=== PATIENT | male | born 1955 | race Caucasian/White ===

== ENCOUNTER 2017-08-26 01:19 | Inpatient (IN) ==
[2017-08-26] MEDS ORDERED: dilTIAZem Inj 125 MG in Sodium Chlor 0.9% Inj 100 ML IV.CONT PRN (01:35)
[2017-08-26] MEDS ORDERED: Nitroglycerin Drip Premix 50 MG/250 ML BOTTLE IV.CONT PRN (01:36)
--- NOTE | 2017-08-26 01:48 | ED ---
HPI General Chief Complaint: Respiratory Symptoms Stated Complaint: Resp?Evac Time Seen by Provider: 08/26/17 01:35 Source: patient and EMS Mode of arrival: EMS Limitations: physical limitation History of Present Illness HPI Narrative: pt forde s SOB worsening over last few days and orthopnea and resp distres placed on BiPaP{ prior to arrival . pt continued on BIPAP and lasix and Nitro given to decrease after load and diuresis of Pulmonary enema . Pt is slowly improving in ER , ROS and HPI limited due to SOB on BiPaP Onset (ago): hour(s) Duration: constant Severity: similar to previous episodes Relieving factors: nothing Related Data Home Medications Medication Instructions Recorded Confirmed aspirin 325 mg PO DAILY 08/26/17 08/26/17 furosemide [Lasix] 40 mg PO BID 08/26/17 08/26/17 Allergies Allergy/AdvReac Type Severity Reaction Status Date / Time No Known Allergies Allergy Verified 08/26/17 01:34 Review of Systems Except as stated in HPI: all other systems reviewed are negative Exam Narrative Exam Narrative: GENERAL: appears very SOB on CPAP from EMS EVAC SKIN: Warm and dry. HEAD: Atraumatic. Normocephalic. EYES: Pupils equal and round. No scleral icterus. No injection or drainage. ENT: No nasal bleeding or discharge. Mucous membranes pink and moist. NECK: Trachea midline. No JVD. CARDIOVASCULAR: Regular rate and rhythm. RESPIRATORY: Rales bibaasilar 1/3 lower lung fileds bilaterally. GASTROINTESTINAL: Abdomen soft, non-tender, nondistended. Hepatic and splenic margins not palpable. MUSCULOSKELETAL: Extremities without clubbing, cyanosis, or edema. No obvious deformities. NEUROLOGICAL: Awake and alert. No obvious cranial nerve deficits. Motor grossly within normal limits. Five out of 5 muscle strength in the arms and legs. Normal speech. PSYCHIATRIC: Appropriate mood and affect; insight and judgment normal. Course Initial Documented Vital Signs Pulse Rate 161 H 08/26/17 01:20 Respiratory Rate 38 H 08/26/17 01:20 Blood Pressure 152/106 H 08/26/17 01:20 Pulse Oximetry 78 L 08/26/17 01:20 Last Documented Vital Signs Temperature 98.2 F 08/29/17 11:00 Pulse Rate 74 08/29/17 11:00 Respiratory Rate 18 08/29/17 11:00 Blood Pressure 105/65 08/29/17 11:00 Pulse Oximetry 96 07/19/18 11:00 Critical Care Time Critical Care Time: Yes Total Critical Care Time: 30 Attestation: BIPAP NITRO DRIP LASIX CLOSE AIRWAY EVAL Medical Decision Making MDM Narrative Medical decision making narrative: CPAP lasix Nitro drip and admit to ICU pt greatly improved after 20 minutes on NItro drip and BIPAP Differential Diagnosis Differential Diagnosis: CHF , COPD , AFIB RVR with poor venticular filling then Pulmonary edema , vs PNA Bronchitis vs PTX other Lab Data Result diagrams: 08/29/17 06:56 08/29/17 06:02 Lab Results 08/26/17 08/26/17 08/26/17 Range/Units 01:51 01:51 01:57 WBC 12.9 H (4.0-11.0) th/mm3 RBC 4.45 L (4.50-5.90) mil/mm3 Hgb 14.9 (13.0-17.0) gm/dL Hct 45.0 (39.0-51.0) % MCV 101.3 H (80.0-100.0) fL MCH 33.5 (27.0-34.0) pg MCHC 33.0 (32.0-36.0) % RDW 14.5 (11.6-17.2) % Plt Count 266 (150-450) th/mm3 MPV 8.3 (7.0-11.0) fL Neut % (Auto) 88.0 H (16.0-70.0) % Lymph % (Auto) 7.8 L (9.0-44.0) % [place] % (Auto) 3.3 (0.0-8.0) % Eos % (Auto) 0.1 (0.0-4.0) % Baso % (Auto) 0.8 (0.0-2.0) % Neut # (Auto) 11.4 H (1.8-7.7) th/mm3 Lymph # (Auto) 1.0 (1.0-4.8) th/mm3 [place] # (Auto) 0.4 (0.0-0.9) th/mm3 Eos # (Auto) 0.0 (0.0-0.4) th/mm3 Baso # (Auto) 0.1 (0.0-0.2) th/mm3 WBC Differential . Differential Comment Auto diff final PT (9.8-11.6) sec INR Ratio APTT (24.3-30.1) sec Puncture Site Patient Temperature O2 Saturation (90-100) % ABG pH (7.380-7.420) ABG pCO2 (38-42) mmHg ABG pO2 (61-120) mmHG ABG HCO3 (22-26) mmol/L ABG O2 Content (12.0-20.0) Vol % ABG Base Excess (-2-2) mmol/L ABG Methemoglobin (0-2) % Arian Test Hemoglobin (12.0-16.0) G/DL Carboxyhemoglobin (0-4) % O2 Delivery Device Vent Setting Inspired O2 % Critical Value Sodium 129 L (136-145) meq/L Potassium 3.7 (3.5-5.1) meq/L Chloride 97 L (98-107) meq/L Carbon Dioxide 17.2 L (21.0-32.0) meq/L Anion Gap 15 (5-15) meq/L BUN 10 (7-18) mg/dL Creatinine 1.35 H (0.60-1.30) mg/dL Estimated GFR 53 L (>89) mL/min Random Glucose 292 H (74-106) mg/dL Hemoglobin A1c (4.3-6.0) % Lactic Acid (0.4-2.0) mmol/L Calcium 8.3 L (8.5-10.1) mg/dL Phosphorus (2.5-4.9) mg/dL Magnesium (1.5-2.5) mg/dL Total Bilirubin 1.8 H (0.2-1.0) mg/dL AST 29 (15-37) U/L ALT 28 (12-78) U/L Alkaline Phosphatase 138 H (45-117) U/L Troponin I 0.04 (0.02-0.05) ng/mL B-Natriuretic Peptide 766 H (0-100) pg/mL Total Protein 7.7 (6.4-8.2) g/dL Albumin 3.6 (3.4-5.0) g/dL Urine Color (Yellw/Straw) Urine Clarity (Clear) Urine pH (5.0-8.5) Ur Specific [place] (1.002-1.035) Urine Protein (Neg-Trace) mg/dL Urine Glucose (UA) (Negative) mg/dL Urine Ketones (Negative) mg/dL Urine Occult Blood (Negative) Urine Nitrate (Negative) Urine Bilirubin (Negative) Urine Urobilinogen (Less than 2) mg/dL Ur Leukocyte Esterase (Negative) Urine RBC (0-3) /hpf Urine WBC (0-5) /hpf Micro UA Comment Urine Culture Comments Nasal Screen MRSA (PCR) (Negative) 08/26/17 08/26/17 08/26/17 Range/Units 03:50 04:05 05:05 WBC 11.4 H (4.0-11.0) th/mm3 RBC 4.30 L (4.50-5.90) mil/mm3 Hgb 14.4 (13.0-17.0) gm/dL Hct 43.5 (39.0-51.0) % MCV 101.2 H (80.0-100.0) fL MCH 33.5 (27.0-34.0) pg MCHC 33.2 (32.0-36.0) % RDW 14.5 (11.6-17.2) % Plt Count 248 (150-450) th/mm3 MPV 8.4 (7.0-11.0) fL Neut % (Auto) (16.0-70.0) % Lymph % (Auto) (9.0-44.0) % [place] % (Auto) (0.0-8.0) % Eos % (Auto) (0.0-4.0) % Baso % (Auto) (0.0-2.0) % Neut # (Auto) (1.8-7.7) th/mm3 Lymph # (Auto) (1.0-4.8) th/mm3 [place] # (Auto) (0.0-0.9) th/mm3 Eos # (Auto) (0.0-0.4) th/mm3 Baso # (Auto) (0.0-0.2) th/mm3 WBC Differential Differential Comment PT 11.5 (9.8-11.6) sec INR 1.1 Ratio APTT (24.3-30.1) sec Puncture Site Patient Temperature O2 Saturation (90-100) % ABG pH (7.380-7.420) ABG pCO2 (38-42) mmHg ABG pO2 (61-120) mmHG ABG HCO3 (22-26) mmol/L ABG O2 Content (12.0-20.0) Vol % ABG Base Excess (-2-2) mmol/L ABG Methemoglobin (0-2) % Arian Test Hemoglobin (12.0-16.0) G/DL Carboxyhemoglobin (0-4) % O2 Delivery Device Vent Setting Inspired O2 % Critical Value Sodium (136-145) meq/L Potassium (3.5-5.1) meq/L Chloride (98-107) meq/L Carbon Dioxide (21.0-32.0) meq/L Anion Gap (5-15) meq/L BUN (7-18) mg/dL Creatinine (0.60-1.30) mg/dL Estimated GFR (>89) mL/min Random Glucose (74-106) mg/dL Hemoglobin A1c (4.3-6.0) % Lactic Acid (0.4-2.0) mmol/L Calcium (8.5-10.1) mg/dL Phosphorus (2.5-4.9) mg/dL Magnesium (1.5-2.5) mg/dL Total Bilirubin (0.2-1.0) mg/dL AST (15-37) U/L ALT (12-78) U/L Alkaline Phosphatase (45-117) U/L Troponin I 0.15 H (0.02-0.05) ng/mL B-Natriuretic Peptide (0-100) pg/mL Total Protein (6.4-8.2) g/dL Albumin (3.4-5.0) g/dL Urine Color (Yellw/Straw) Urine Clarity (Clear) Urine pH (5.0-8.5) Ur Specific [place] (1.002-1.035) Urine Protein (Neg-Trace) mg/dL Urine Glucose (UA) (Negative) mg/dL Urine Ketones (Negative) mg/dL Urine Occult Blood (Negative) Urine Nitrate (Negative) Urine Bilirubin (Negative) Urine Urobilinogen (Less than 2) mg/dL Ur Leukocyte Esterase (Negative) Urine RBC (0-3) /hpf Urine WBC (0-5) /hpf Micro UA Comment Urine Culture Comments Nasal Screen MRSA (PCR) (Negative) 08/26/17 08/26/17 08/26/17 Range/Units 08:07 10:52 10:52 WBC (4.0-11.0) th/mm3 RBC (4.50-5.90) mil/mm3 Hgb (13.0-17.0) gm/dL Hct (39.0-51.0) % MCV (80.0-100.0) fL MCH (27.0-34.0) pg MCHC (32.0-36.0) % RDW (11.6-17.2) % Plt Count (150-450) th/mm3 MPV (7.0-11.0) fL Neut % (Auto) (16.0-70.0) % Lymph % (Auto) (9.0-44.0) % [place] % (Auto) (0.0-8.0) % Eos % (Auto) (0.0-4.0) % Baso % (Auto) (0.0-2.0) % Neut # (Auto) (1.8-7.7) th/mm3 Lymph # (Auto) (1.0-4.8) th/mm3 [place] # (Auto) (0.0-0.9) th/mm3 Eos # (Auto) (0.0-0.4) th/mm3 Baso # (Auto) (0.0-0.2) th/mm3 WBC Differential Differential Comment PT 11.7 H (9.8-11.6) sec INR 1.2 Ratio APTT 42.0 H 46.7 H (24.3-30.1) sec Puncture Site Patient Temperature O2 Saturation (90-100) % ABG pH (7.380-7.420) ABG pCO2 (38-42) mmHg ABG pO2 (61-120) mmHG ABG HCO3 (22-26) mmol/L ABG O2 Content (12.0-20.0) Vol % ABG Base Excess (-2-2) mmol/L ABG Methemoglobin (0-2) % Arian Test Hemoglobin (12.0-16.0) G/DL Carboxyhemoglobin (0-4) % O2 Delivery Device Vent Setting Inspired O2 % Critical Value Sodium (136-145) meq/L Potassium (3.5-5.1) meq/L Chloride (98-107) meq/L Carbon Dioxide (21.0-32.0) meq/L Anion Gap (5-15) meq/L BUN (7-18) mg/dL Creatinine (0.60-1.30) mg/dL Estimated GFR (>89) mL/min Random Glucose (74-106) mg/dL Hemoglobin A1c (4.3-6.0) % Lactic Acid (0.4-2.0) mmol/L Calcium (8.5-10.1) mg/dL Phosphorus (2.5-4.9) mg/dL Magnesium (1.5-2.5) mg/dL Total Bilirubin (0.2-1.0) mg/dL AST (15-37) U/L ALT (12-78) U/L Alkaline Phosphatase (45-117) U/L Troponin I 0.03 (0.02-0.05) ng/mL B-Natriuretic Peptide (0-100) pg/mL Total Protein (6.4-8.2) g/dL Albumin (3.4-5.0) g/dL Urine Color (Yellw/Straw) Urine Clarity (Clear) Urine pH (5.0-8.5) Ur Specific [place] (1.002-1.035) Urine Protein (Neg-Trace) mg/dL Urine Glucose (UA) (Negative) mg/dL Urine Ketones (Negative) mg/dL Urine Occult Blood (Negative) Urine Nitrate (Negative) Urine Bilirubin (Negative) Urine Urobilinogen (Less than 2) mg/dL Ur Leukocyte Esterase (Negative) Urine RBC (0-3) /hpf Urine WBC (0-5) /hpf Micro UA Comment Urine Culture Comments Nasal Screen MRSA (PCR) (Negative) 08/26/17 08/26/17 08/26/17 Range/Units 14:50 17:46 22:40 WBC (4.0-11.0) th/mm3 RBC (4.50-5.90) mil/mm3 Hgb (13.0-17.0) gm/dL Hct (39.0-51.0) % MCV (80.0-100.0) fL MCH (27.0-34.0) pg MCHC (32.0-36.0) % RDW (11.6-17.2) % Plt Count (150-450) th/mm3 MPV (7.0-11.0) fL Neut % (Auto) (16.0-70.0) % Lymph % (Auto) (9.0-44.0) % [place] % (Auto) (0.0-8.0) % Eos % (Auto) (0.0-4.0) % Baso % (Auto) (0.0-2.0) % Neut # (Auto) (1.8-7.7) th/mm3 Lymph # (Auto) (1.0-4.8) th/mm3 [place] # (Auto) (0.0-0.9) th/mm3 Eos # (Auto) (0.0-0.4) th/mm3 Baso # (Auto) (0.0-0.2) th/mm3 WBC Differential Differential Comment PT (9.8-11.6) sec INR Ratio APTT 58.5 H D (24.3-30.1) sec Puncture Site Left radial Patient Temperature 98.6 O2 Saturation 92 (90-100) % ABG pH 7.34 L (7.380-7.420) ABG pCO2 44 H (38-42) mmHg ABG pO2 81 (61-120) mmHG ABG HCO3 23 (22-26) mmol/L ABG O2 Content 18.3 (12.0-20.0) Vol % ABG Base Excess -2.0 (-2-2) mmol/L ABG Methemoglobin 1.3 (0-2) % Arian Test Present Hemoglobin 14.1 (12.0-16.0) G/DL Carboxyhemoglobin 1.1 (0-4) % O2 Delivery Device Bipap Vent Setting Ipap=12 epap=6 Inspired O2 60 % Critical Value No Sodium (136-145) meq/L Potassium (3.5-5.1) meq/L Chloride (98-107) meq/L Carbon Dioxide (21.0-32.0) meq/L Anion Gap (5-15) meq/L BUN (7-18) mg/dL Creatinine (0.60-1.30) mg/dL Estimated GFR (>89) mL/min Random Glucose (74-106) mg/dL Hemoglobin A1c (4.3-6.0) % Lactic Acid (0.4-2.0) mmol/L Calcium (8.5-10.1) mg/dL Phosphorus (2.5-4.9) mg/dL Magnesium (1.5-2.5) mg/dL Total Bilirubin (0.2-1.0) mg/dL AST (15-37) U/L ALT (12-78) U/L Alkaline Phosphatase (45-117) U/L Troponin I (0.02-0.05) ng/mL B-Natriuretic Peptide (0-100) pg/mL Total Protein (6.4-8.2) g/dL Albumin (3.4-5.0) g/dL Urine Color (Yellw/Straw) Urine Clarity (Clear) Urine pH (5.0-8.5) Ur Specific [place] (1.002-1.035) Urine Protein (Neg-Trace) mg/dL Urine Glucose (UA) (Negative) mg/dL Urine Ketones (Negative) mg/dL Urine Occult Blood (Negative) Urine Nitrate (Negative) Urine Bilirubin (Negative) Urine Urobilinogen (Less than 2) mg/dL Ur Leukocyte Esterase (Negative) Urine RBC (0-3) /hpf Urine WBC (0-5) /hpf Micro UA Comment Urine Culture Comments Nasal Screen MRSA (PCR) Not detected (Negative) 08/27/17 08/27/17 08/27/17 Range/Units 05:15 05:15 05:15 WBC 9.8 (4.0-11.0) th/mm3 RBC 4.01 L (4.50-5.90) mil/mm3 Hgb 13.6 (13.0-17.0) gm/dL Hct 40.2 (39.0-51.0) % MCV 100.3 H (80.0-100.0) fL MCH 34.1 H (27.0-34.0) pg MCHC 34.0 (32.0-36.0) % RDW 14.3 (11.6-17.2) % Plt Count 205 (150-450) th/mm3 MPV 8.5 (7.0-11.0) fL Neut % (Auto) 83.9 H (16.0-70.0) % Lymph % (Auto) 10.4 (9.0-44.0) % [place] % (Auto) 5.2 (0.0-8.0) % Eos % (Auto) 0.1 (0.0-4.0) % Baso % (Auto) 0.4 (0.0-2.0) % Neut # (Auto) 8.2 H (1.8-7.7) th/mm3 Lymph # (Auto) 1.0 (1.0-4.8) th/mm3 [place] # (Auto) 0.5 (0.0-0.9) th/mm3 Eos # (Auto) 0.0 (0.0-0.4) th/mm3 Baso # (Auto) 0.0 (0.0-0.2) th/mm3 WBC Differential . Differential Comment Auto diff final PT 11.6 (9.8-11.6) sec INR 1.1 Ratio APTT 62.1 H (24.3-30.1) sec Puncture Site Patient Temperature O2 Saturation (90-100) % ABG pH (7.380-7.420) ABG pCO2 (38-42) mmHg ABG pO2 (61-120) mmHG ABG HCO3 (22-26) mmol/L ABG O2 Content (12.0-20.0) Vol % ABG Base Excess (-2-2) mmol/L ABG Methemoglobin (0-2) % Arian Test Hemoglobin (12.0-16.0) G/DL Carboxyhemoglobin (0-4) % O2 Delivery Device Vent Setting Inspired O2 % Critical Value Sodium 130 L (136-145) meq/L Potassium 4.1 (3.5-5.1) meq/L Chloride 94 L (98-107) meq/L Carbon Dioxide 24.7 (21.0-32.0) meq/L Anion Gap 11 (5-15) meq/L BUN 17 (7-18) mg/dL Creatinine 1.57 H (0.60-1.30) mg/dL Estimated GFR 45 L (>89) mL/min Random Glucose 132 H D (74-106) mg/dL Hemoglobin A1c (4.3-6.0) % Lactic Acid (0.4-2.0) mmol/L Calcium 8.5 (8.5-10.1) mg/dL Phosphorus 3.7 (2.5-4.9) mg/dL Magnesium 1.8 (1.5-2.5) mg/dL Total Bilirubin 2.6 H (0.2-1.0) mg/dL AST 58 H (15-37) U/L ALT 46 (12-78) U/L Alkaline Phosphatase 109 (45-117) U/L Troponin I (0.02-0.05) ng/mL B-Natriuretic Peptide (0-100) pg/mL Total Protein 6.8 D (6.4-8.2) g/dL Albumin 3.0 L D (3.4-5.0) g/dL Urine Color (Yellw/Straw) Urine Clarity (Clear) Urine pH (5.0-8.5) Ur Specific [place] (1.002-1.035) Urine Protein (Neg-Trace) mg/dL Urine Glucose (UA) (Negative) mg/dL Urine Ketones (Negative) mg/dL Urine Occult Blood (Negative) Urine Nitrate (Negative) Urine Bilirubin (Negative) Urine Urobilinogen (Less than 2) mg/dL Ur Leukocyte Esterase (Negative) Urine RBC (0-3) /hpf Urine WBC (0-5) /hpf Micro UA Comment Urine Culture Comments Nasal Screen MRSA (PCR) (Negative) 08/27/17 08/27/17 08/27/17 Range/Units 05:15 05:15 19:51 WBC 14.5 H (4.0-11.0) th/mm3 RBC 3.85 L (4.50-5.90) mil/mm3 Hgb 12.8 L (13.0-17.0) gm/dL Hct 38.6 L (39.0-51.0) % MCV 100.2 H (80.0-100.0) fL MCH 33.1 (27.0-34.0) pg MCHC 33.0 (32.0-36.0) % RDW 14.5 (11.6-17.2) % Plt Count 167 (150-450) th/mm3 MPV 8.7 (7.0-11.0) fL Neut % (Auto) (16.0-70.0) % Lymph % (Auto) (9.0-44.0) % [place] % (Auto) (0.0-8.0) % Eos % (Auto) (0.0-4.0) % Baso % (Auto) (0.0-2.0) % Neut # (Auto) (1.8-7.7) th/mm3 Lymph # (Auto) (1.0-4.8) th/mm3 [place] # (Auto) (0.0-0.9) th/mm3 Eos # (Auto) (0.0-0.4) th/mm3 Baso # (Auto) (0.0-0.2) th/mm3 WBC Differential Differential Comment PT (9.8-11.6) sec INR Ratio APTT (24.3-30.1) sec Puncture Site Patient Temperature O2 Saturation (90-100) % ABG pH (7.380-7.420) ABG pCO2 (38-42) mmHg ABG pO2 (61-120) mmHG ABG HCO3 (22-26) mmol/L ABG O2 Content (12.0-20.0) Vol % ABG Base Excess (-2-2) mmol/L ABG Methemoglobin (0-2) % Arian Test Hemoglobin (12.0-16.0) G/DL Carboxyhemoglobin (0-4) % O2 Delivery Device Vent Setting Inspired O2 % Critical Value Sodium (136-145) meq/L Potassium (3.5-5.1) meq/L Chloride (98-107) meq/L Carbon Dioxide (21.0-32.0) meq/L Anion Gap (5-15) meq/L BUN (7-18) mg/dL Creatinine (0.60-1.30) mg/dL Estimated GFR (>89) mL/min Random Glucose (74-106) mg/dL Hemoglobin A1c 5.8 (4.3-6.0) % Lactic Acid 1.3 (0.4-2.0) mmol/L Calcium (8.5-10.1) mg/dL Phosphorus (2.5-4.9) mg/dL Magnesium (1.5-2.5) mg/dL Total Bilirubin (0.2-1.0) mg/dL AST (15-37) U/L ALT (12-78) U/L Alkaline Phosphatase (45-117) U/L Troponin I (0.02-0.05) ng/mL B-Natriuretic Peptide (0-100) pg/mL Total Protein (6.4-8.2) g/dL Albumin (3.4-5.0) g/dL Urine Color (Yellw/Straw) Urine Clarity (Clear) Urine pH (5.0-8.5) Ur Specific [place] (1.002-1.035) Urine Protein (Neg-Trace) mg/dL Urine Glucose (UA) (Negative) mg/dL Urine Ketones (Negative) mg/dL Urine Occult Blood (Negative) Urine Nitrate (Negative) Urine Bilirubin (Negative) Urine Urobilinogen (Less than 2) mg/dL Ur Leukocyte Esterase (Negative) Urine RBC (0-3) /hpf Urine WBC (0-5) /hpf Micro UA Comment Urine Culture Comments Nasal Screen MRSA (PCR) (Negative) 08/27/17 08/28/17 08/28/17 Range/Units 19:51 00:00 03:40 WBC 14.0 H (4.0-11.0) th/mm3 RBC 3.82 L (4.50-5.90) mil/mm3 Hgb 12.7 L (13.0-17.0) gm/dL Hct 38.1 L (39.0-51.0) % MCV 99.8 (80.0-100.0) fL MCH 33.3 (27.0-34.0) pg MCHC 33.3 (32.0-36.0) % RDW 14.3 (11.6-17.2) % Plt Count 171 (150-450) th/mm3 MPV 8.5 (7.0-11.0) fL Neut % (Auto) 84.9 H (16.0-70.0) % Lymph % (Auto) 7.3 L (9.0-44.0) % [place] % (Auto) 7.3 (0.0-8.0) % Eos % (Auto) 0.1 (0.0-4.0) % Baso % (Auto) 0.4 (0.0-2.0) % Neut # (Auto) 11.8 H (1.8-7.7) th/mm3 Lymph # (Auto) 1.0 (1.0-4.8) th/mm3 [place] # (Auto) 1.0 H (0.0-0.9) th/mm3 Eos # (Auto) 0.0 (0.0-0.4) th/mm3 Baso # (Auto) 0.1 (0.0-0.2) th/mm3 WBC Differential . Differential Comment Auto diff final PT (9.8-11.6) sec INR Ratio APTT 32.7 H D 35.5 H (24.3-30.1) sec Puncture Site Patient Temperature O2 Saturation (90-100) % ABG pH (7.380-7.420) ABG pCO2 (38-42) mmHg ABG pO2 (61-120) mmHG ABG HCO3 (22-26) mmol/L ABG O2 Content (12.0-20.0) Vol % ABG Base Excess (-2-2) mmol/L ABG Methemoglobin (0-2) % Arian Test Hemoglobin (12.0-16.0) G/DL Carboxyhemoglobin (0-4) % O2 Delivery Device Vent Setting Inspired O2 % Critical Value Sodium (136-145) meq/L Potassium (3.5-5.1) meq/L Chloride (98-107) meq/L Carbon Dioxide (21.0-32.0) meq/L Anion Gap (5-15) meq/L BUN (7-18) mg/dL Creatinine (0.60-1.30) mg/dL Estimated GFR (>89) mL/min Random Glucose (74-106) mg/dL Hemoglobin A1c (4.3-6.0) % Lactic Acid (0.4-2.0) mmol/L Calcium (8.5-10.1) mg/dL Phosphorus (2.5-4.9) mg/dL Magnesium (1.5-2.5) mg/dL Total Bilirubin (0.2-1.0) mg/dL AST (15-37) U/L ALT (12-78) U/L Alkaline Phosphatase (45-117) U/L Troponin I (0.02-0.05) ng/mL B-Natriuretic Peptide (0-100) pg/mL Total Protein (6.4-8.2) g/dL Albumin (3.4-5.0) g/dL Urine Color (Yellw/Straw) Urine Clarity (Clear) Urine pH (5.0-8.5) Ur Specific [place] (1.002-1.035) Urine Protein (Neg-Trace) mg/dL Urine Glucose (UA) (Negative) mg/dL Urine Ketones (Negative) mg/dL Urine Occult Blood (Negative) Urine Nitrate (Negative) Urine Bilirubin (Negative) Urine Urobilinogen (Less than 2) mg/dL Ur Leukocyte Esterase (Negative) Urine RBC (0-3) /hpf Urine WBC (0-5) /hpf Micro UA Comment Urine Culture Comments Nasal Screen MRSA (PCR) (Negative) 08/28/17 08/28/17 08/28/17 Range/Units 03:40 07:50 17:00 WBC (4.0-11.0) th/mm3 RBC (4.50-5.90) mil/mm3 Hgb (13.0-17.0) gm/dL Hct (39.0-51.0) % MCV (80.0-100.0) fL MCH (27.0-34.0) pg MCHC (32.0-36.0) % RDW (11.6-17.2) % Plt Count (150-450) th/mm3 MPV (7.0-11.0) fL Neut % (Auto) (16.0-70.0) % Lymph % (Auto) (9.0-44.0) % [place] % (Auto) (0.0-8.0) % Eos % (Auto) (0.0-4.0) % Baso % (Auto) (0.0-2.0) % Neut # (Auto) (1.8-7.7) th/mm3 Lymph # (Auto) (1.0-4.8) th/mm3 [place] # (Auto) (0.0-0.9) th/mm3 Eos # (Auto) (0.0-0.4) th/mm3 Baso # (Auto) (0.0-0.2) th/mm3 WBC Differential Differential Comment PT (9.8-11.6) sec INR Ratio APTT 34.9 H (24.3-30.1) sec Puncture Site Patient Temperature O2 Saturation (90-100) % ABG pH (7.380-7.420) ABG pCO2 (38-42) mmHg ABG pO2 (61-120) mmHG ABG HCO3 (22-26) mmol/L ABG O2 Content (12.0-20.0) Vol % ABG Base Excess (-2-2) mmol/L ABG Methemoglobin (0-2) % Arian Test Hemoglobin (12.0-16.0) G/DL Carboxyhemoglobin (0-4) % O2 Delivery Device Vent Setting Inspired O2 % Critical Value Sodium 130 L (136-145) meq/L Potassium 3.7 (3.5-5.1) meq/L Chloride 93 L (98-107) meq/L Carbon Dioxide 24.6 (21.0-32.0) meq/L Anion Gap 12 (5-15) meq/L BUN 27 H (7-18) mg/dL Creatinine 1.87 H (0.60-1.30) mg/dL Estimated GFR 37 L (>89) mL/min Random Glucose 116 H (74-106) mg/dL Hemoglobin A1c (4.3-6.0) % Lactic Acid (0.4-2.0) mmol/L Calcium 8.6 (8.5-10.1) mg/dL Phosphorus (2.5-4.9) mg/dL Magnesium (1.5-2.5) mg/dL Total Bilirubin 3.1 H (0.2-1.0) mg/dL AST 53 H (15-37) U/L ALT 48 (12-78) U/L Alkaline Phosphatase 93 (45-117) U/L Troponin I (0.02-0.05) ng/mL B-Natriuretic Peptide (0-100) pg/mL Total Protein 6.8 (6.4-8.2) g/dL Albumin 2.9 L (3.4-5.0) g/dL Urine Color Yellow (Yellw/Straw) Urine Clarity Hazy H (Clear) Urine pH 6.0 (5.0-8.5) Ur Specific [place] 1.010 (1.002-1.035) Urine Protein 100 H (Neg-Trace) mg/dL Urine Glucose (UA) Negative (Negative) mg/dL Urine Ketones Negative (Negative) mg/dL Urine Occult Blood Large H (Negative) Urine Nitrate Negative (Negative) Urine Bilirubin Negative (Negative) Urine Urobilinogen Less than 2 (Less than 2) mg/dL Ur Leukocyte Esterase Trace H (Negative) Urine RBC 10 H (0-3) /hpf Urine WBC 4 (0-5) /hpf Micro UA Comment Cath-culture not ind Urine Culture Comments Cath-cult not ind Nasal Screen MRSA (PCR) (Negative) 08/28/17 08/29/17 08/29/17 Range/Units 18:20 00:36 06:02 WBC (4.0-11.0) th/mm3 RBC (4.50-5.90) mil/mm3 Hgb (13.0-17.0) gm/dL Hct (39.0-51.0) % MCV (80.0-100.0) fL MCH (27.0-34.0) pg MCHC (32.0-36.0) % RDW (11.6-17.2) % Plt Count (150-450) th/mm3 MPV (7.0-11.0) fL Neut % (Auto) (16.0-70.0) % Lymph % (Auto) (9.0-44.0) % [place] % (Auto) (0.0-8.0) % Eos % (Auto) (0.0-4.0) % Baso % (Auto) (0.0-2.0) % Neut # (Auto) (1.8-7.7) th/mm3 Lymph # (Auto) (1.0-4.8) th/mm3 [place] # (Auto) (0.0-0.9) th/mm3 Eos # (Auto) (0.0-0.4) th/mm3 Baso # (Auto) (0.0-0.2) th/mm3 WBC Differential Differential Comment PT (9.8-11.6) sec INR Ratio APTT 27.0 D 41.2 H D (24.3-30.1) sec Puncture Site Patient Temperature O2 Saturation (90-100) % ABG pH (7.380-7.420) ABG pCO2 (38-42) mmHg ABG pO2 (61-120) mmHG ABG HCO3 (22-26) mmol/L ABG O2 Content (12.0-20.0) Vol % ABG Base Excess (-2-2) mmol/L ABG Methemoglobin (0-2) % Arian Test Hemoglobin (12.0-16.0) G/DL Carboxyhemoglobin (0-4) % O2 Delivery Device Vent Setting Inspired O2 % Critical Value Sodium 130 L (136-145) meq/L Potassium 3.4 L (3.5-5.1) meq/L Chloride 91 L (98-107) meq/L Carbon Dioxide 28.2 (21.0-32.0) meq/L Anion Gap 11 (5-15) meq/L BUN 26 H (7-18) mg/dL Creatinine 1.57 H (0.60-1.30) mg/dL Estimated GFR 45 L (>89) mL/min Random Glucose 101 (74-106) mg/dL Hemoglobin A1c (4.3-6.0) % Lactic Acid (0.4-2.0) mmol/L Calcium 8.5 (8.5-10.1) mg/dL Phosphorus (2.5-4.9) mg/dL Magnesium (1.5-2.5) mg/dL Total Bilirubin (0.2-1.0) mg/dL AST (15-37) U/L ALT (12-78) U/L Alkaline Phosphatase (45-117) U/L Troponin I (0.02-0.05) ng/mL B-Natriuretic Peptide (0-100) pg/mL Total Protein (6.4-8.2) g/dL Albumin (3.4-5.0) g/dL Urine Color (Yellw/Straw) Urine Clarity (Clear) Urine pH (5.0-8.5) Ur Specific [place] (1.002-1.035) Urine Protein (Neg-Trace) mg/dL Urine Glucose (UA) (Negative) mg/dL Urine Ketones (Negative) mg/dL Urine Occult Blood (Negative) Urine Nitrate (Negative) Urine Bilirubin (Negative) Urine Urobilinogen (Less than 2) mg/dL Ur Leukocyte Esterase (Negative) Urine RBC (0-3) /hpf Urine WBC (0-5) /hpf Micro UA Comment Urine Culture Comments Nasal Screen MRSA (PCR) (Negative) 08/29/17 08/29/17 Range/Units 06:56 06:56 WBC 12.8 H (4.0-11.0) th/mm3 RBC 3.92 L (4.50-5.90) mil/mm3 Hgb 13.3 (13.0-17.0) gm/dL Hct 39.0 (39.0-51.0) % MCV 99.7 (80.0-100.0) fL MCH 33.9 (27.0-34.0) pg MCHC 34.0 (32.0-36.0) % RDW 14.6 (11.6-17.2) % Plt Count 186 (150-450) th/mm3 MPV 8.9 (7.0-11.0) fL Neut % (Auto) 81.2 H (16.0-70.0) % Lymph % (Auto) 9.7 (9.0-44.0) % [place] % (Auto) 8.5 H (0.0-8.0) % Eos % (Auto) 0.3 (0.0-4.0) % Baso % (Auto) 0.3 (0.0-2.0) % Neut # (Auto) 10.3 H (1.8-7.7) th/mm3 Lymph # (Auto) 1.2 (1.0-4.8) th/mm3 [place] # (Auto) 1.1 H (0.0-0.9) th/mm3 Eos # (Auto) 0.0 (0.0-0.4) th/mm3 Baso # (Auto) 0.0 (0.0-0.2) th/mm3 WBC Differential . Differential Comment Auto diff final PT (9.8-11.6) sec INR Ratio APTT 36.2 H (24.3-30.1) sec Puncture Site Patient Temperature O2 Saturation (90-100) % ABG pH (7.380-7.420) ABG pCO2 (38-42) mmHg ABG pO2 (61-120) mmHG ABG HCO3 (22-26) mmol/L ABG O2 Content (12.0-20.0) Vol % ABG Base Excess (-2-2) mmol/L ABG Methemoglobin (0-2) % Arian Test Hemoglobin (12.0-16.0) G/DL Carboxyhemoglobin (0-4) % O2 Delivery Device Vent Setting Inspired O2 % Critical Value Sodium (136-145) meq/L Potassium (3.5-5.1) meq/L Chloride (98-107) meq/L Carbon Dioxide (21.0-32.0) meq/L Anion Gap (5-15) meq/L BUN (7-18) mg/dL Creatinine (0.60-1.30) mg/dL Estimated GFR (>89) mL/min Random Glucose (74-106) mg/dL Hemoglobin A1c (4.3-6.0) % Lactic Acid (0.4-2.0) mmol/L Calcium (8.5-10.1) mg/dL Phosphorus (2.5-4.9) mg/dL Magnesium (1.5-2.5) mg/dL Total Bilirubin (0.2-1.0) mg/dL AST (15-37) U/L ALT (12-78) U/L Alkaline Phosphatase (45-117) U/L Troponin I (0.02-0.05) ng/mL B-Natriuretic Peptide (0-100) pg/mL Total Protein (6.4-8.2) g/dL Albumin (3.4-5.0) g/dL Urine Color (Yellw/Straw) Urine Clarity (Clear) Urine pH (5.0-8.5) Ur Specific [place] (1.002-1.035) Urine Protein (Neg-Trace) mg/dL Urine Glucose (UA) (Negative) mg/dL Urine Ketones (Negative) mg/dL Urine Occult Blood (Negative) Urine Nitrate (Negative) Urine Bilirubin (Negative) Urine Urobilinogen (Less than 2) mg/dL Ur Leukocyte Esterase (Negative) Urine RBC (0-3) /hpf Urine WBC (0-5) /hpf Micro UA Comment Urine Culture Comments Nasal Screen MRSA (PCR) (Negative) Imaging Data Radiologist's impression: Chest X-Ray 08/26/17 00:00 CONCLUSION: Significant change in the appearance of the mid and lower lungs when compared to examination earlier today with increasing bilateral lower lung consolidation , left greater than right. Chest X-Ray 08/26/17 01:48 CONCLUSION: Mild congestive heart failure. Chest X-Ray 08/27/17 06:00 CONCLUSION: Bilateral mostly basilar airspace disease with small effusions. Cardiomegaly. No pneumothorax. Abdomen/Bladder Ultrasound 08/28/17 00:00 CONCLUSION: 1. There is mild increased echogenicity of the renal parenchyma bilaterally. This can be seen with chronic medical renal disease. 2. No evidence of hydronephrosis. Discharge Plan Discharge Disposition Patient Disposition: 30 Still Patient Discharge Condition Condition: Stable Discharge Order Discharge Orders: AMA Discharge (Routine); Ordered 08/29/17 Ordered By: Raymon Simms Discharge Details Anticipated Discharge Date: 08/29/17 Physicians Team ED Provider: Jason Nunez Primary Care Provider: Primary Care Katja Mei Attending Provider: Raymon Simms Other Providers: Thien Booth ; Vito Claudio Status ED Status: Left Department Discharge Information Discharge Date/Time: 08/26/17 14:10
--- NOTE | 2017-08-26 02:08 | XR ---
EXAM DATE: 08/26/2017 2:03 AM EDT AGE/SEX: 62 years / Male INDICATIONS: Shortness of breath. CLINICAL DATA: This is the patient's initial encounter. Patient reports that signs and symptoms have been present for 1 day and indicates a pain score of 0/10. MEDICAL/SURGICAL HISTORY: . A fib. None. COMPARISON: [facility] – [place] CHEST SINGLE AP, 12/28/2015. . FINDINGS: There is cardiomegaly with a mild pulmonary edema pattern. This is a new finding since comparison fro December 2015. Remote left rib fractures. No pneumothorax. CONCLUSION: Mild congestive heart failure. Electronically signed by: Lobito Corrigan MD 08/26/2017 2:06 AM EDT
[2017-08-26 02:11] LABS: Baso # (Auto) 0.1 th/mm3 (0.0-0.2); Baso % (Auto) 0.8 % (0.0-2.0); Eos % (Auto) 0.1 % (0.0-4.0); Hemoglobin 14.9 gm/dL (13.0-17.0); Lymph % (Auto) 7.8 % (9.0-44.0); Mean Corpuscular Hemoglobin 33.5 pg (27.0-34.0); Mean Corpuscular Volume 101.3 fL (80.0-100.0); Mean Platelet Volume 8.3 fL (7.0-11.0); Mono # (Auto) 0.4 th/mm3 (0.0-0.9); Mono % (Auto) 3.3 % (0.0-8.0); Neut # (Auto) 11.4 th/mm3 (1.8-7.7); Platelet Count 266 th/mm3 (150-450); Red Blood Count 4.45 mil/mm3 (4.50-5.90); Red Cell Distribution Width 14.5 % (11.6-17.2); White Blood Count 12.9 th/mm3 (4.0-11.0)
[2017-08-26 02:32] LABS: Albumin 3.6 g/dL (3.4-5.0); Anion Gap 15 meq/L (5-15); Aspartate Aminotransferase 29 U/L (15-37); Blood Urea Nitrogen 10 mg/dL (7-18); Calcium 8.3 mg/dL (8.5-10.1); Carbon Dioxide 17.2 meq/L (21.0-32.0); Chloride 97 meq/L (98-107); Glomerular Filtration Rate 53 mL/min (>89); Glucose,Random 292 mg/dL (74-106); Potassium 3.7 meq/L (3.5-5.1); Sodium 129 meq/L (136-145)
[2017-08-26 02:37] LABS: Alanine Aminotransferase 28 U/L (12-78); Alkaline Phosphatase 138 U/L (45-117); Total Protein 7.7 g/dL (6.4-8.2); Troponin I 0.04 ng/mL (0.02-0.05)
[2017-08-26] MEDS ORDERED: Acetaminophen 325 MG Tablet PO PRN (04:09)
[2017-08-26] MEDS ORDERED: Bisacodyl 10 MG Supp RECTAL PRN (04:09)
[2017-08-26 04:10] LABS: INR 1.1 Ratio; Prothrombin Time 11.5 sec (9.8-11.6)
[2017-08-26] MEDS: Heparin Drip 25,000 UNIT/250 ML BAG IV.CONT PRN (05:25)
--- NOTE | 2017-08-26 05:40 | P.HPCC ---
History of Present Illness Primary Care Physician: No Primary Care Physician History of Present Illness: 62-year-old gentleman with past medical history of atrial fibrillation presents with acute on chronic congestive heart failure exacerbation and progressively worsening shortness of breath. In the emergency department the patient was placed on the BiPAP with improvement of oxygenation. He denies chest pain, diaphoresis, nausea or vomiting. History is limited due to significant respiratory distress and requirement of continuous facemask BiPAP. Inpatient Certification: I certify that the inpatient services were ordered in accordance with Medicare regulations governing the order. This includes certification that hospital inpatient services are reasonable and necessary and in the case of services not specified as inpatient-only under 42 CFR 419.22(n), that they are appropriately provided as inpatient services in accordance to with the 2-midnight benchmark under 43 CFR 412.3(e) Estimated Total Length of Stay (Days): 5 Plans for Post Hospital Care: Not yet determined Review of Systems unobtainable due to mental status Unable to obtain patient on facemask BiPAP in respiratory distress PMFSH - History History Provided By: Patient - Medical History Medical History: Medical History (Last Updated 08/26/17 @ 14:43 by Salena Peterson RN) Back pain (Acute) Skin cancer (Acute) Afib (Acute) - Surgical History Surgical History: Surgical History (Last Updated 08/26/17 @ 14:43 by Salena Peterson RN) Hx of oral surgery (Acute) - Tobacco History Tobacco Use In Past 30 Days: Yes Smoking Status: Current every day smoker Tobacco Type: Cigarettes - Alcohol History How Often Do You Have a Drink Containing Alcohol: 4 or more times a week - Substance Use History Substance History: No History of Abuse - Travel History Recent Travel in the [place] Within the Last 8 Weeks: No Recent Travel Out of the Country Within the Last 8 Weeks: No - Immunization History Tetanus Immunization: Unsure Hx Influenza Vaccine This Season: No Medications and Allergies Active Medications: Active Medications Acetaminophen (Tylenol) 650 mg PO Q6H PRN PRN Reason: PAIN 1-5 AND/OR FEVER >101F Al Hydroxide/Mg Hydroxide (Milk Of Magnesia Liq) 30 ml PO Q12H PRN PRN Reason: Mild Constipation Albuterol (Duoneb Neb (Portia)) 1 ampul NEB Q4HR NEB PORTIA Albuterol (Duoneb Neb (Prn)) 1 ampul NEB Q2HR NEB PRN PRN Reason: WHEEZING Bisacodyl (Dulcolax Supp) 10 mg RECTAL DAILY PRN PRN Reason: SEVERE CONSITIPATION Chlorhexidine Gluconate (Chlorhexidine 2% Cloth) 3 pack TOPICAL DAILY@0400 PORTIA Stop: 09/01/17 03:59 Chlorhexidine Gluconate (Chlorhexidine 2% Cloth) 3 pack TOPICAL DAILY@0400 PRN PRN Reason: Extra cloth needed Stop: 09/01/17 03:59 Famotidine (Pepcid Pf Inj) 20 mg IV.PUSH Q12HR PORTIA Furosemide (Lasix) 40 mg PO BID [facility] Heparin Sodium (Porcine) (Heparin Inj) 5,000 units SQ Q8H PORTIA Diltiazem HCl 125 mg/ Sodium (Chloride) 125 mls @ 5 mls/hr IV.CONT TITRATE PRN ; Protocol PRN Reason: Per Protocol Last Admin: 08/26/17 02:06 Dose: 5 mg/hr, 5 mls/hr Nitroglycerin/Dextrose (Nitroglycerin Drip Premix) 50 mg in 250 mls @ 0 mls/hr IV.CONT TITRATE PRN; Protocol PRN Reason: Per Protocol Last Admin: 08/26/17 02:05 Dose: 100 mcg/min, 30 mls/hr Heparin Sodium/Dextrose (Heparin/D5w 25,000 U/250 Ml) 25,000 unit in 250 mls @ 0 mls/hr IV.CONT TITRATE PRN; Protocol PRN Reason: Per Protocol Last Admin: 08/26/17 05:25 Dose: 1,800 units/hr, 18 mls/hr Lactulose (Lactulose Liq) 30 ml PO DAILY PRN PRN Reason: SEVERE CONSITIPATION Morphine Sulfate (Morphine Inj) 2 mg IV.PUSH Q2H PRN PRN Reason: PAIN SCALE 6 TO 10 Ondansetron HCl (Zofran Inj) 4 mg IV.PUSH Q6H PRN PRN Reason: NAUSEA OR VOMITING Senna/Docusate Sodium (Jessica-Colace) 1 tab PO BID [facility] Sennosides (Senokot) 17.2 mg PO Q12H PRN PRN Reason: Moderate Constipation Sodium Chloride (Ns Flush) 2 ml IV.FLUSH BID [facility] Sodium Chloride (Ns Flush) 2 ml IV.FLUSH PRN PRN PRN Reason: FLUSH AFTER USING IV ACCESS Allergies Allergy/AdvReac Type Severity Reaction Status Date / Time No Known Allergies Allergy Verified 08/26/17 01:34 Home Medications Medication Instructions Recorded Confirmed Type aspirin 325 mg PO DAILY 08/26/17 08/26/17 History furosemide [Lasix] 40 mg PO BID 08/26/17 08/26/17 History Results - Labs CBC & Chem 7: 08/26/17 04:05 08/26/17 01:51 Labs: Short CBC 08/26/17 Range/Units 01:51 WBC 12.9 H (4.0-11.0) th/mm3 Hgb 14.9 (13.0-17.0) gm/dL Hct 45.0 (39.0-51.0) % Plt Count 266 (150-450) th/mm3 BMP 08/26/17 01:51 Sodium 129 L Potassium 3.7 Chloride 97 L Carbon Dioxide 17.2 L BUN 10 Creatinine 1.35 H Calcium 8.3 L Cardiac Enzymes 08/26/17 Range/Units 01:51 Troponin I 0.04 (0.02-0.05) ng/mL Liver Function 08/26/17 Range/Units 01:51 Total Bilirubin 1.8 H (0.2-1.0) mg/dL AST 29 (15-37) U/L ALT 28 (12-78) U/L Alkaline Phosphatase 138 H (45-117) U/L Albumin 3.6 (3.4-5.0) g/dL - Imaging Impressions Chest X-Ray 08/26/17 01:48 CONCLUSION: Mild congestive heart failure. Exam Vital signs: Vital Signs 08/26/17 01:20 08/26/17 01:22 08/26/17 01:30 Temperature Pulse Rate 161 H 138 H Respiratory Rate 38 H 38 H Blood Pressure 152/106 H 137/80 Pulse Oximetry 78 L 92 L 92 L 08/26/17 01:37 08/26/17 01:50 08/26/17 02:20 Temperature 97.6 F Pulse Rate 130 H 144 H 124 H Respiratory Rate 34 H 34 H 28 H Blood Pressure 137/60 145/60 H 165/69 H Pulse Oximetry 94 L 97 97 08/26/17 03:55 08/26/17 04:11 08/26/17 04:55 Temperature Pulse Rate 119 H 110 H Respiratory Rate 23 24 Blood Pressure 147/68 H 134/76 Pulse Oximetry 98 99 98 08/26/17 05:13 08/26/17 05:26 Temperature Pulse Rate Respiratory Rate Blood Pressure Pulse Oximetry 98 98 Intake & Output 08/25/17 08/25/17 08/26/17 06:59 18:59 06:59 Output Total 400 / 400 Balance -400 / -400 Weight 106 kg Output: Urine Amount (Catheter) 400 / 400 Indwelling Urethral Catheter 400 / 400 - Constitutional mild distress - Routine HEENT Exam Head: Present: normocephalic, atraumatic Eye: Present: PERRL ENT: Present: mucous membranes moist - Routine Neck Exam Present: full ROM. Absent: JVD, carotid bruit - Routine Chest/Breast/Axilla Exam Chest wall: Absent: tenderness, mass, pacemaker - Routine Respiratory Exam Present: rhonchi, crackles. Absent: accessory muscle use, stridor, wheezes - Routine Abdominal Exam Present: soft, normoactive bowel sounds - Routine Extremities Exam Absent: cyanosis, clubbing, edema - Routine Neurological Exam Present: normal reflexes Caprini VTE Risk Assessment Caprini VTE Risk Assessment: Moderate/High Risk (score >= 2) Caprini Risk Assessment Model: Point Value = 1 Point Value = 2 Point Value = 3 Point Value = 5 Age 41-60 Minor surgery BMI > 25 kg/m2 Swollen legs Varicose veins or History of unexplained or recurrent spontaneous Oral contraceptives or hormone replacement Sepsis (< 1 month) Serious lung disease, including pneumonia (< 1 month) Abnormal pulmonary function Acute myocardial infarction Congestive heart failure (< 1 month) History of inflammatory bowel disease Medical patient at bed rest Age 61-74 Arthroscopic surgery Major open surgery (> 45 min) Laparoscopic surgery (> 45 min) Malignancy Confined to bed (> 72 hours) Immobilizing plaster cast Central venous access Age >= 75 History of VTE Family history of VTE Factor V Leiden Prothrombin [id number] Lupus anticoagulant Anticardiolipin antibodies Elevated serum homocysteine Heparin-induced thrombocytopenia Other congenital or acquired thrombophilia Stroke (< 1 month) Elective arthroplasty Hip, pelvis, or leg fracture Acute spinal cord injury (< 1 month) Prophylaxis Regimen: Total Risk Factor Score Risk Level Prophylaxis Regimen 0-1 Low Early ambulation 2 Moderate Order ONE of the following: *Sequential Compression Device (SCD) *Heparin 5000 units SQ BID 3-4 Higher Order ONE of the following medications: *Heparin 5000 units SQ TID *Enoxaparin/Lovenox 40 mg SQ daily (WT < 150 kg, CrCl > 30 mL/min) *Enoxaparin/Lovenox 30 mg SQ daily (WT < 150 kg, CrCl > 10-29 mL/min) *Enoxaparin/Lovenox 30 mg SQ BID (WT < 150 kg, CrCl > 30 mL/min) AND/OR *Sequential Compression Device (SCD) 5 or more Highest Order ONE of the following medications: *Heparin 5000 units SQ TID (Preferred with Epidurals) *Enoxaparin/Lovenox 40 mg SQ daily (WT < 150 kg, CrCl > 30 mL/min) *Enoxaparin/Lovenox 30 mg SQ daily (WT < 150 kg, CrCl > 10-29 mL/min) *Enoxaparin/Lovenox 30 mg SQ BID (WT < 150 kg, CrCl > 30 mL/min) AND *Sequential Compression Device (SCD) Assessment and Plan - Assessment and Plan Plan: Respiratory failure -Acute on chronic CHF exacerbation -Diuresis with Lasix -Repeat CXR and ABG in a.m. -Continue BiPAP, wean as tolerated -DuoNeb's as needed Acute on chronic congestive heart failure -Lasix -Coreg -Hydralazine -We will add lisinopril Hypertension -Initially treated with Cardene and nitro drip in the emergency department -Attempt to wean and resume home meds as tolerated Atrial fibrillation -Rate controlled with diltiazem and carvedilol -Patient not on anticoagulation at home -2D echo pending -consider systemic anticoagulation based on chads score -Per chart review patient has a history significant of alcohol abuse concern of safety of chronic anticoagulation DVT GI prophylaxis -Teds SCDs -Subcu heparin -Pepcid Critical Care: The total critical care time was 35 minutes. Time to perform other separately billable procedures was not included in the critical care time.
[2017-08-26 05:52] LABS: Hematocrit 43.5 % (39.0-51.0); Hemoglobin 14.4 gm/dL (13.0-17.0); Mean Corpuscular HGB Conc 33.2 % (32.0-36.0); Mean Corpuscular Hemoglobin 33.5 pg (27.0-34.0); Mean Corpuscular Volume 101.2 fL (80.0-100.0); Mean Platelet Volume 8.4 fL (7.0-11.0); Platelet Count 248 th/mm3 (150-450); Red Cell Distribution Width 14.5 % (11.6-17.2); White Blood Count 11.4 th/mm3 (4.0-11.0)
[2017-08-26] MEDS: Heparin - SQ 10,000 UNITS/ML Vial SQ SCH ×2 (06:08→15:34)
[2017-08-26] MEDS: Morphine Inj 4 MG/ML Vial IV.PUSH PRN ×3 (06:08→15:36)
[2017-08-26 08:41] LABS: INR 1.2 Ratio; Prothrombin Time 11.7 sec (9.8-11.6)
[2017-08-26] MEDS: Senna/Docusate Sodium 8.6/50 MG Tablet PO SCH ×2 (10:55→20:46)
[2017-08-26] MEDS: Famotidine PF Inj 20 MG/2 ML Vial IV.PUSH SCH ×2 (10:55→20:44)
[2017-08-26] MEDS: Furosemide 40 MG Tablet PO SCH ×2 (10:55→23:08)
[2017-08-26] MEDS ORDERED: dilTIAZem 30 MG Tablet PO ONE (12:15)
[2017-08-26] MEDS ORDERED: hydrALAZINE 25 MG Tablet PO PRN (12:55)
[2017-08-26] MEDS: Carvedilol 12.5 MG Tablet PO SCH ×2 (14:22→23:09)
--- NOTE | 2017-08-26 18:20 | ECG ---
Date Performed: 08/26/2017 Time Performed: 01:22:33 PTAGE: 62 years EKG: ATRIAL FIBRILLATION WITH RAPID VENTRICULAR RESPONSE MODERATE ST DEPRESSION ABNORMAL ECG Com pared to PREVIOUS TRACING , atrial fibrillation with rapid ventricular response has replaced Sinus rhythm with PACs. PREVIOUS TRACIN12/28/2015 14.27.20 DOCTOR: Bharath Owens Interpretating Date/Time 08/26/2017 18:19:35
--- NOTE | 2017-08-26 18:20 | ECG ---
Date Performed: 08/26/2017 Time Performed: 05:20:08 PTAGE: 62 years EKG: ATRIAL FIBRILLATION WITH RAPID VENTRICULAR RESPONSE NONSPECIFIC T-WAVE ABNORMALITY ABNORMAL RHYTHM ECG Compared to PREVIOUS TRACING , ventricular response to atrial fibrillation has slowed. PREVIOUS CADE N12/28/2015 14.27 DOCTOR: Bharath Owens Interpretating Date/Time 08/26/2017 18:20:08
[2017-08-26] MEDS: dilTIAZem 60 MG Tablet PO SCH (18:23)
--- NOTE | 2017-08-26 22:59 | P.PNADD ---
Addendum to Inpatient Note Reason for Addendum: Additional Documentation Additional information: HALICAT NOTE Subjective: 62-year-old male, past medical history of atrial fibrillation, recently admitted under [facility] driver care for acute respiratory failure. Resident team was paged 20 minutes ago for desaturations to 50% and signs of cyanosis; blue coloring of face and lethargy. The BiPAP machine was placed on the patient and his oxygen saturations immediately increased back to 95-100%. The patient is talking through his mask and he states that he felt dizzy before but now he feels normal. He does not feel confused. He is talking in full sentences. He denies any chest pain or severe difficulty breathing. He denies any dizziness. No fevers. Objective: O2 sat 97% Afebrile Heart rate 98 BP 137/86 Physical exam: General: No acute distress, awake alert and oriented 3 Cardiac: Regular rate and rhythm, normal S1 and S2 Pulmonary: Lungs clear to auscultation bilaterally, no wheezing or rhonchi on auscultation Extremities: 2+ nonpitting edema up to mid thigh Assessment/plan:62-year-old male, past medical history of atrial fibrillation, recently admitted under [facility] driver care for acute respiratory failure. Patient presented with acute exacerbation of respiratory failure after being transferred from BiPAP treatment in the ED to the floor with no oxygen supplementation. Follow-up ABG Follow-up chest x-ray Continue to follow telemetry Continue continuous pulse ox Add BiPAP respiratory treatment
--- NOTE | 2017-08-26 23:17 | XR ---
EXAM DATE: 08/26/2017 11:08 PM EDT AGE/SEX: 62 years / Male INDICATIONS: . Respiratory Failure. CLINICAL DATA: This is the patient's subsequent encounter. Patient reports that signs and symptoms h ave been present for 2 days and indicates a pain score of Nonresponsive. MEDICAL/SURGICAL HISTORY: . AFIB None. COMPARISON: [facility], CHEST 1V SINGLE AP, 08/26/2017. . FINDINGS: There is increasing consolidation in the lower lungs bilaterally with loss of delineation of the enti re left hemidiaphragm and portions of the right hemidiaphragm. The central bronchopulmonary markings are indistinct. The heart is enlarged, similar to prior. Diffuse osteopenia. CONCLUSION: Significant change in the appearance of the mid and lower lungs when compared to examination earlier today with increasing bilateral lower lung consolidation, left greater than right. Electronically signed by: Sean Alvarez MD 08/26/2017 11:16 PM EDT
[2017-08-27 00:06] LABS: ABG PCO2 44 mmHg (38-42); ABG PO2 81 mmHG (61-120)
[2017-08-27] MEDS ORDERED: Chlorhexidine Gluconate 2% 1 Pack (2 Cloths) TOPICAL SCH ×2 (04:00→08:43)
[2017-08-27] MEDS ORDERED: Chlorhexidine Gluconate 2% 1 Pack (2 Cloths) TOPICAL PRN (04:00)
--- NOTE | 2017-08-27 04:59 | XR ---
EXAM DATE: 08/27/2017 4:23 AM EDT AGE/SEX: 62 years / Male INDICATIONS: . Short of breath. CLINICAL DATA: This is the patient's subsequent encounter. Patient reports that signs and symptoms h ave been present for 4 - 6 days and indicates a pain score of 0/10. MEDICAL/SURGICAL HISTORY: . AFIB. None. COMPARISON: [facility] – [place], CHEST 1V SINGLE AP, 08/26/2017. . FINDINGS: There is bilateral mostly basilar airspace disease. Small effusions. Cardiomegaly. No pneumothorax. CONCLUSION: Bilateral mostly basilar airspace disease with small effusions. Cardiomegaly. No pneumothorax. Electronically signed by: Lobito Corrigan MD 08/27/2017 4:58 AM EDT
[2017-08-27] MEDS: dilTIAZem 60 MG Tablet PO SCH ×4 (05:38→17:13)
[2017-08-27 05:45] LABS: Activated Partial Thrombo Time 62.1 sec (24.3-30.1); INR 1.1 Ratio; Prothrombin Time 11.6 sec (9.8-11.6)
[2017-08-27 05:57] LABS: Baso % (Auto) 0.4 % (0.0-2.0); Eos % (Auto) 0.1 % (0.0-4.0); Hematocrit 40.2 % (39.0-51.0); Hemoglobin 13.6 gm/dL (13.0-17.0); Lymph % (Auto) 10.4 % (9.0-44.0); Mean Corpuscular Hemoglobin 34.1 pg (27.0-34.0); Mean Corpuscular Volume 100.3 fL (80.0-100.0); Mean Platelet Volume 8.5 fL (7.0-11.0); Mono # (Auto) 0.5 th/mm3 (0.0-0.9); Mono % (Auto) 5.2 % (0.0-8.0); Neut # (Auto) 8.2 th/mm3 (1.8-7.7); Neut % (Auto) 83.9 % (16.0-70.0); Platelet Count 205 th/mm3 (150-450); Red Blood Count 4.01 mil/mm3 (4.50-5.90); Red Cell Distribution Width 14.3 % (11.6-17.2); White Blood Count 9.8 th/mm3 (4.0-11.0)
[2017-08-27 06:08] LABS: Alanine Aminotransferase 46 U/L (12-78); Alkaline Phosphatase 109 U/L (45-117); Anion Gap 11 meq/L (5-15); Aspartate Aminotransferase 58 U/L (15-37); Blood Urea Nitrogen 17 mg/dL (7-18); Calcium 8.5 mg/dL (8.5-10.1); Carbon Dioxide 24.7 meq/L (21.0-32.0); Chloride 94 meq/L (98-107); Glomerular Filtration Rate 45 mL/min (>89); Glucose,Random 132 mg/dL (74-106); Magnesium 1.8 mg/dL (1.5-2.5); Phosphorus 3.7 mg/dL (2.5-4.9); Potassium 4.1 meq/L (3.5-5.1); Sodium 130 meq/L (136-145); Total Protein 6.8 g/dL (6.4-8.2)
[2017-08-27] MEDS: Heparin - SQ 10,000 UNITS/ML Vial SQ SCH ×2 (06:15→08:24)
[2017-08-27] MEDS: Furosemide 40 MG Tablet PO SCH ×2 (08:22→20:48)
[2017-08-27] MEDS: Carvedilol 12.5 MG Tablet PO SCH ×2 (08:22→20:48)
[2017-08-27] MEDS: Aspirin 325 MG Tablet PO SCH (08:22)
[2017-08-27] MEDS: Senna/Docusate Sodium 8.6/50 MG Tablet PO SCH ×2 (08:22→20:48)
[2017-08-27] MEDS: Famotidine PF Inj 20 MG/2 ML Vial IV.PUSH SCH ×2 (08:23→20:48)
[2017-08-27] MEDS: Lisinopril 5 MG Tablet PO SCH (08:23)
[2017-08-27] MEDS: Heparin Drip 25,000 UNIT/250 ML BAG IV.CONT PRN ×2 (08:36→18:10)
--- NOTE | 2017-08-27 11:08 | P.PN ---
Subjective Interval history: 62-year-old female with known history of atrial fibrillation, congestive heart failure, chronic alcohol use who presented to the emergency department because of shortness of breath, difficulty breathing. Patient lives in [place] and has been visiting here for the last few days. Apparently he started developing what he thought was alcohol withdrawals with significant tremors, shortness of breath, difficulty breathing so he came to the emergency department for evaluation. Patient was found to have acute hypoxic respiratory failure, congestive heart failure and was placed on BiPAP for respiratory support. Patient was initially admitted to the critical care team for management. Patient has been successfully weaned off of the BiPAP and now is on nasal cannula 5 L. Patient has been diuresed quite well with over 3 L of fluid removed. Patient states that he is feeling much better. His breathing has improved. His lower extremity swelling has improved. Still awaiting further workup to be performed for final delineation. Blood pressure stable, patient remains afebrile. Physical Exam Vital signs: Vital Signs 08/26/17 11:34 08/26/17 11:48 08/26/17 12:41 Temperature Pulse Rate 82 77 80 Respiratory Rate 18 16 18 Blood Pressure 117/94 H 141/88 H Pulse Oximetry 95 96 08/26/17 14:14 08/26/17 15:07 08/26/17 15:08 Temperature 98.0 F Pulse Rate 97 H 81 91 H Respiratory Rate 22 Blood Pressure 116/74 Pulse Oximetry 97 08/26/17 16:12 08/26/17 16:21 08/26/17 17:20 Temperature Pulse Rate 87 81 88 Respiratory Rate 24 Blood Pressure Pulse Oximetry 08/26/17 18:02 08/26/17 19:00 08/26/17 19:50 Temperature 97.5 F L Pulse Rate 98 H 87 78 Respiratory Rate 19 Blood Pressure 92/51 L Pulse Oximetry 92 L 08/26/17 19:51 08/26/17 20:00 08/26/17 20:18 Temperature Pulse Rate 77 74 96 H Respiratory Rate 21 Blood Pressure 83/59 L Pulse Oximetry 94 L 08/26/17 21:00 08/26/17 22:03 08/26/17 22:30 Temperature Pulse Rate 78 80 Respiratory Rate Blood Pressure Pulse Oximetry 100 08/26/17 22:35 08/26/17 22:40 08/26/17 23:00 Temperature 97.4 F L 97.4 F L Pulse Rate 88 79 Respiratory Rate 16 19 Blood Pressure 136/82 102/66 Pulse Oximetry 99 98 99 08/26/17 23:57 08/27/17 00:00 08/27/17 01:00 Temperature Pulse Rate 76 79 Respiratory Rate 20 Blood Pressure Pulse Oximetry 98 98 08/27/17 01:14 08/27/17 02:00 08/27/17 03:00 Temperature 97.6 F Pulse Rate 76 86 Respiratory Rate 17 Blood Pressure 99/66 L Pulse Oximetry 100 99 08/27/17 03:22 08/27/17 04:00 08/27/17 04:20 Temperature Pulse Rate 77 85 Respiratory Rate 18 Blood Pressure Pulse Oximetry 99 08/27/17 05:00 08/27/17 06:00 08/27/17 07:00 Temperature 98.1 F Pulse Rate 82 81 114 H Respiratory Rate 20 Blood Pressure 103/72 Pulse Oximetry 94 L 08/27/17 08:00 08/27/17 08:02 08/27/17 09:00 Temperature Pulse Rate 78 54 L 64 Respiratory Rate 18 Blood Pressure Pulse Oximetry 94 L 97 08/27/17 10:00 Temperature Pulse Rate 67 Respiratory Rate Blood Pressure Pulse Oximetry Intake & Output 08/26/17 08/27/17 08/27/17 18:59 06:59 18:59 Intake Total 312 / 312 240 / 240 Output Total 1750 / 1750 625 / 625 Balance -1438 / -1438 -385 / -385 Weight 100.9 kg 105.5 kg Intake: IV Heparin/D5W 25,000 U/250 mL , 000 unit In 250 ml @ Per Protocol IV.CONT TITRATE PRN Rx #:[id number] Oral 240 / 240 240 / 240 Output: Urine Amount (Catheter) 1750 / 1750 625 / 625 Indwelling Urethral Catheter 1750 / 1750 625 / 625 Other: Weight On Admission 100.9 kg Narrative: GENERAL: Well-developed, well-nourished, in no acute distress. alert and orientated HEENT: Head is normocephalic without any lesions or masses noted. Facial features are symmetric. Eyes: Extraocular muscles are intact. Conjunctivae were clear. NECK: Supple without any masses. Trachea midline no deviation. No JVD, no bruits are appreciated CARDIAC: Irregular rhythm, irregular rate. S1/S2 are heard. No murmurs gallops or rubs. LUNGS: Clear to auscultation bilaterally. No wheeze, rhonchi or rales. No use of accessory muscles on inspiration or expiration. ABDOMEN: Soft, nontender. Nondistended. Bowel sounds heard in all 4 quadrants. No organomegaly or masses. Negative rebound, negative guarding EXTREMITIES: 2+ pitting edema noted in bilateral lower extremity, pulses are equal bilaterally. No cyanosis or clubbing NEUROLOGY: Mood and affect appear appropriate. Cranial nerves II through XII grossly intact. Moving all extremities, speech clear - Urinary Catheter Management Indwelling Urethral Catheter Cath placed during this visit: yes Reason for continuing: Other continuation reason Insertion date: 08/26/17 Insertion time: 03:58 Results - Labs CBC & Chem 7: 08/27/17 05:15 08/27/17 05:15 Laboratory Results - last 24 hr 08/26/17 08/26/17 08/26/17 10:52 10:52 14:50 WBC RBC Hgb Hct MCV MCH MCHC RDW Plt Count MPV Neut % (Auto) Lymph % (Auto) [place] % (Auto) Eos % (Auto) Baso % (Auto) Neut # (Auto) Lymph # (Auto) [place] # (Auto) Eos # (Auto) Baso # (Auto) WBC Differential Differential Comment PT INR APTT 46.7 H Puncture Site Patient Temperature O2 Saturation ABG pH ABG pCO2 ABG pO2 ABG HCO3 ABG O2 Content ABG Base Excess ABG Methemoglobin Arian Test Hemoglobin Carboxyhemoglobin O2 Delivery Device Vent Setting Inspired O2 Critical Value Sodium Potassium Chloride Carbon Dioxide Anion Gap BUN Creatinine Estimated GFR Random Glucose Lactic Acid Calcium Phosphorus Magnesium Total Bilirubin AST ALT Alkaline Phosphatase Troponin I 0.03 Total Protein Albumin Nasal Screen MRSA (PCR) Not detected 08/26/17 08/26/17 08/27/17 17:46 22:40 05:15 WBC 9.8 RBC 4.01 L Hgb 13.6 Hct 40.2 MCV 100.3 H MCH 34.1 H MCHC 34.0 RDW 14.3 Plt Count 205 MPV 8.5 Neut % (Auto) 83.9 H Lymph % (Auto) 10.4 [place] % (Auto) 5.2 Eos % (Auto) 0.1 Baso % (Auto) 0.4 Neut # (Auto) 8.2 H Lymph # (Auto) 1.0 [place] # (Auto) 0.5 Eos # (Auto) 0.0 Baso # (Auto) 0.0 WBC Differential . Differential Comment Auto diff final PT INR APTT 58.5 H D Puncture Site Left radial Patient Temperature 98.6 O2 Saturation 92 ABG pH 7.34 L ABG pCO2 44 H ABG pO2 81 ABG HCO3 23 ABG O2 Content 18.3 ABG Base Excess -2.0 ABG Methemoglobin 1.3 Arian Test Present Hemoglobin 14.1 Carboxyhemoglobin 1.1 O2 Delivery Device Bipap Vent Setting Ipap=12 epap=6 Inspired O2 60 Critical Value No Sodium Potassium Chloride Carbon Dioxide Anion Gap BUN Creatinine Estimated GFR Random Glucose Lactic Acid Calcium Phosphorus Magnesium Total Bilirubin AST ALT Alkaline Phosphatase Troponin I Total Protein Albumin Nasal Screen MRSA (PCR) 08/27/17 08/27/17 08/27/17 05:15 05:15 05:15 WBC RBC Hgb Hct MCV MCH MCHC RDW Plt Count MPV Neut % (Auto) Lymph % (Auto) [place] % (Auto) Eos % (Auto) Baso % (Auto) Neut # (Auto) Lymph # (Auto) [place] # (Auto) Eos # (Auto) Baso # (Auto) WBC Differential Differential Comment PT 11.6 INR 1.1 APTT 62.1 H Puncture Site Patient Temperature O2 Saturation ABG pH ABG pCO2 ABG pO2 ABG HCO3 ABG O2 Content ABG Base Excess ABG Methemoglobin Arian Test Hemoglobin Carboxyhemoglobin O2 Delivery Device Vent Setting Inspired O2 Critical Value Sodium 130 L Potassium 4.1 Chloride 94 L Carbon Dioxide 24.7 Anion Gap 11 BUN 17 Creatinine 1.57 H Estimated GFR 45 L Random Glucose 132 H D Lactic Acid 1.3 Calcium 8.5 Phosphorus 3.7 Magnesium 1.8 Total Bilirubin 2.6 H AST 58 H ALT 46 Alkaline Phosphatase 109 Troponin I Total Protein 6.8 D Albumin 3.0 L D Nasal Screen MRSA (PCR) - Imaging Impressions Chest X-Ray 08/26/17 00:00 CONCLUSION: Significant change in the appearance of the mid and lower lungs when compared to examination earlier today with increasing bilateral lower lung consolidation , left greater than right. Chest X-Ray 08/27/17 06:00 CONCLUSION: Bilateral mostly basilar airspace disease with small effusions. Cardiomegaly. No pneumothorax. - Procedures Awaiting echocardiogram Assessment and Plan - Plan Acute congestive heart failure, improving -Unknown whether it is systolic versus diastolic -Continue Lasix 40 mg IV every 12 hours -Continue monitor strict input and output -Continue beta-magnolia and AMEE inhibitor -Awaiting echocardiogram -Awaiting cardiology consultation Acute hypoxic respiratory failure, resolved -Secondary to congestive heart failure, fluid overload -Continue to wean oxygen to maintain O2 sat greater than 92% -Duo nebs every 6 hours while awake and every 2 hours as needed Chronic atrial fibrillation -Patient continued on Coreg and Cardizem -Patient is not on any oral anticoagulation at this time -Patient currently on heparin IV, discontinue once first dose of Eliquis given -Cardiology consulted for anticoagulation recommendations -Nursing staff indicates that they spoke with tier over who recommended Eliquis/Xarelto for anticoagulation Chronic alcohol abuse -Continue monitor for any withdrawal -Ativan as needed for seizures -Librium as needed for any withdrawal symptoms DVT prevention -Heparin IV, patient will be started on Eliquis -Sequential compression devices
[2017-08-27 13:06] LABS: Hemoglobin A1c 5.8 % (4.3-6.0)
--- NOTE | 2017-08-27 15:53 | MB ---
cc: Thien Booth MD DATE: 08/27/2017 HISTORY OF PRESENT ILLNESS: Mr. oNlen is a very pleasant 62-year-old gentleman with history of atrial fibrillation, noncompliance with Xarelto, who presents with severe shortness of breath, has been diuresed and feels much better. Currently on nasal cannula. He is still smoking. He denies chest pain, fever, chills, cough, GI or bleeding, PND, orthopnea, syncope or dizziness. PAST MEDICAL HISTORY: As per history of present illness. He has a history of tonsillectomy as well, history of back pain and skin cancer. ALLERGIES: NONE. SOCIAL HISTORY: He does smoke. MEDICATIONS IN THE HOSPITAL: 1. Albuterol. 2. Coreg 12.5 b.i.d. 3. Librium p.r.n. 4. IV heparin. 5. Cardizem 60 mg q.6 hours. 6. Pepcid 20 mg IV q.12. 7. Lasix 40 mg p.o. b.i.d. PHYSICAL EXAMINATION: VITAL SIGNS: Blood pressure 101/65, pulse 79, temperature 98.6, respiratory rate of 18. GENERAL: He is alert and oriented x 3, in no acute distress. NECK: Supple. No JVD. No bruit. CARDIOVASCULAR: S1, S2. No murmurs, rubs, gallops. LUNGS: Clear to auscultation bilaterally. ABDOMEN: Soft, nontender, nondistended with positive bowel sounds. EXTREMITIES: No lower extremity edema. LABORATORY DATA: White count 12.9, hemoglobin 14.9, hematocrit 45.0, platelet count 266, MCV 101.3. INR is 1.2. Sodium 130, potassium 4.1, chloride 94, bicarbonate 24.7, BUN 17, creatinine 1.57. Troponin was 0.15, followed by 0.03. BNP is 766. Lactic acid is 1.3. Blood cultures are negative x 1. EKG on 08/26/2017 shows AFib at a rate of 153 beats per minute. Repeat EKG: Atrial fibrillation at a rate of 83 beats per minute. DIAGNOSES: 1. [id number] myocardial infarction. 2. Atrial fibrillation with rapid ventricular response. 3. Tobacco abuse. 4. Hyponatremia. 5. Noncompliance with medicine. 6. Elevated white count. 7. Chronic renal insufficiency. 8. Decompensated congestive heart failure. DISCUSSION: At this point in time, I do think right heart catheterization and left heart catheterization are medically necessary given the elevated troponin, non-STEMI, multiple cardiac risk factors, high pretest probability for significant coronary artery disease. The patient has received Eliquis today. We will hold this, restart the heparin drip. Plan for heart catheterization tomorrow. Strongly recommend smoking cessation. Further recommendations based on the results of his left and right heart catheterization. Thien Booth MD AWDarren/KD , 03:22 PM , 03:51 PM
--- NOTE | 2017-08-27 16:12 | ECHRPT ---
Indication: Heart failure, unspecified CONCLUSIONS The left ventricular systolic function is moderately reduced with an estimated ejection fraction in the range of 40-45%. Wall thickness is measured at the upper limits of normal. Normal left ventricular size. The left atrial size is moderately dilated. Mild mitral valve regurgitation. There is mild tricuspid valve regurgitation. The estimated pulmonary arterial pressure is 32.3 mmHg. BP: / HR: 90 Rhythm: Sinus MEASUREMENTS (Male / Female) Normal Values Technical Quality:Fair 2D ECHO LV Diastolic Diameter PLAX 4.5 cm 4.2 - 5.9 / 3.9 - 5.3 cm LV Systolic Diameter PLAX 3.6 cm IVS Diastolic Thickness 1.1 cm 0.6 - 1.0 / 0.6 - 0.9 cm LVPW Diastolic Thickness 1.1 cm 0.6 - 1.0 / 0.6 - 0.9 cm LV Relative Wall Thickness 0.5 LVOT Diameter 2.0 cm M-MODE Aortic Root Diameter MM 3.1 cm LA Systolic Diameter MM 5.1 cm LA Ao Ratio MM 1.6 AV Cusp Separation MM 2.7 cm DOPPLER AV Peak Velocity 114.0 cm/s AV Peak Gradient 5.2 mmHg MR Peak Velocity 246.0 cm/s MR Peak Gradient 24.2 mmHg LV E' Lateral Velocity 11.7 cm/s TR Peak Velocity 236.0 cm/s TR Peak Gradient 22.3 mmHg Right Atrial Pressure 10.0 mmHg Pulmonary Artery Systolic Pressu 32.3 mmHg Right Ventricular Systolic Press 32.3 mmHg FINDINGS LEFT VENTRICLE The left ventricular systolic function is moderately reduced with an estimated ejection fraction in the range of 40-45%. Wall thickness is measured at the upper limits of normal. Normal left ventricular size. RIGHT VENTRICLE Normal right ventricular size and systolic function. LEFT ATRIUM The left atrial size is moderately dilated. RIGHT ATRIUM The right atrial size is normal. ATRIAL SEPTUM Normal atrial septal thickness without atrial level shunting by limited color doppler interrogation. AORTA The aortic root and proximal ascending aorta are normal in size on limited imaging. MITRAL VALVE Mild mitral valve regurgitation. AORTIC VALVE Trileaflet aortic valve. No aortic valve stenosis or regurgitation. TRICUSPID VALVE There is mild tricuspid valve regurgitation. The estimated pulmonary arterial pressure is 32.3 mmHg. PULMONARY VALVE No pulmonary valve regurgitation or stenosis. VESSELS The inferior vena cava is normal in size. PERICARDIUM No pericardial effusion. Thien Booth MD, FACC, FSCAI (Electronically Signed) Final Date:27 August 2017 16:10
[2017-08-27 20:23] LABS: Hematocrit 38.6 % (39.0-51.0); Hemoglobin 12.8 gm/dL (13.0-17.0); Mean Corpuscular Hemoglobin 33.1 pg (27.0-34.0); Mean Corpuscular Volume 100.2 fL (80.0-100.0); Mean Platelet Volume 8.7 fL (7.0-11.0); Platelet Count 167 th/mm3 (150-450); Red Blood Count 3.85 mil/mm3 (4.50-5.90); Red Cell Distribution Width 14.5 % (11.6-17.2); White Blood Count 14.5 th/mm3 (4.0-11.0)
--- NOTE | 2017-08-27 21:02 | ECG ---
Date Performed: 08/26/2017 Time Performed: 16:37:42 PTAGE: 62 years EKG: Probable atrial fibrillation Septal and lateral ST-T changes Abnormal ECG PREVIOUS TRACING : 08/26/2017 05.20 No significant change when compared with previous DOCTOR: Li Rivera Interpretating Date/Time 08/27/2017 21:02:01
[2017-08-28] MEDS: Heparin 10,000 UNITS/10 ML Vial (for IV use) IV.PUSH PRN ×4 (01:08→19:40)
[2017-08-28 03:58] LABS: Baso # (Auto) 0.1 th/mm3 (0.0-0.2); Baso % (Auto) 0.4 % (0.0-2.0); Eos % (Auto) 0.1 % (0.0-4.0); Hematocrit 38.1 % (39.0-51.0); Hemoglobin 12.7 gm/dL (13.0-17.0); Lymph % (Auto) 7.3 % (9.0-44.0); Mean Corpuscular HGB Conc 33.3 % (32.0-36.0); Mean Corpuscular Hemoglobin 33.3 pg (27.0-34.0); Mean Corpuscular Volume 99.8 fL (80.0-100.0); Mean Platelet Volume 8.5 fL (7.0-11.0); Mono % (Auto) 7.3 % (0.0-8.0); Neut # (Auto) 11.8 th/mm3 (1.8-7.7); Neut % (Auto) 84.9 % (16.0-70.0); Platelet Count 171 th/mm3 (150-450); Red Blood Count 3.82 mil/mm3 (4.50-5.90); Red Cell Distribution Width 14.3 % (11.6-17.2)
[2017-08-28 04:22] LABS: Albumin 2.9 g/dL (3.4-5.0); Anion Gap 12 meq/L (5-15); Aspartate Aminotransferase 53 U/L (15-37); Blood Urea Nitrogen 27 mg/dL (7-18); Calcium 8.6 mg/dL (8.5-10.1); Carbon Dioxide 24.6 meq/L (21.0-32.0); Chloride 93 meq/L (98-107); Glomerular Filtration Rate 37 mL/min (>89); Glucose,Random 116 mg/dL (74-106); Potassium 3.7 meq/L (3.5-5.1); Sodium 130 meq/L (136-145)
[2017-08-28 04:23] LABS: Alanine Aminotransferase 48 U/L (12-78)
[2017-08-28 04:25] LABS: Alkaline Phosphatase 93 U/L (45-117); Total Protein 6.8 g/dL (6.4-8.2)
--- NOTE | 2017-08-28 08:14 | P.PNIM ---
Subjective Interval history: The patient wanted to know when his catheterization would be. He said that he was breathing alright. He denied any pain. Discussed with nursing. Physical Exam Vital signs: Vital Signs 08/27/17 09:00 08/27/17 10:00 08/27/17 11:00 Temperature 98.6 F Pulse Rate 64 67 79 Respiratory Rate 18 Blood Pressure 101/65 Pulse Oximetry 96 08/27/17 12:26 08/27/17 13:00 08/27/17 14:00 Temperature Pulse Rate 68 70 74 Respiratory Rate 20 Blood Pressure Pulse Oximetry 94 L 08/27/17 15:00 08/27/17 16:00 08/27/17 16:54 Temperature 98.2 F Pulse Rate 68 75 84 Respiratory Rate 18 Blood Pressure 100/68 Pulse Oximetry 96 08/27/17 17:11 08/27/17 19:00 08/27/17 20:09 Temperature 97.8 F Pulse Rate 76 86 66 Respiratory Rate 20 24 Blood Pressure 103/62 Pulse Oximetry 95 94 L 08/27/17 23:00 08/28/17 00:00 08/28/17 01:00 Temperature 97.8 F Pulse Rate 75 75 66 Respiratory Rate 20 Blood Pressure 91/53 L Pulse Oximetry 95 08/28/17 02:39 08/28/17 03:00 08/28/17 04:00 Temperature 97.9 F Pulse Rate 67 88 83 Respiratory Rate 20 Blood Pressure 95/55 L Pulse Oximetry 95 08/28/17 05:00 08/28/17 07:00 Temperature 98.2 F Pulse Rate 87 88 Respiratory Rate 20 20 Blood Pressure 91/53 L Pulse Oximetry 96 Intake & Output 08/27/17 08/28/17 08/28/17 18:59 06:59 18:59 Intake Total 589 / 589 240 / 240 Output Total 850 / 850 550 / 550 Balance -261 / -261 -310 / -310 Intake: IV 109 / 109 Heparin/D5W 25,000 U/250 mL 25, 109 / 109 000 unit In 250 ml @ Per Protocol IV.CONT TITRATE PRN Rx #:[id number] Oral 480 / 480 240 / 240 Output: Urine 850 / 850 550 / 550 Other: Date of Last Bowel Movement 08/25/17 # Bowel Movements 0 Narrative: GENERAL: Well-developed, well-nourished, in no acute distress. HEENT: Head is normocephalic without any lesions or masses noted. Facial features are symmetric. NECK: Supple without any masses. Trachea midline no deviation. No JVD, no bruits are appreciated. CARDIAC: Irregular rhythm, irregular rate. S1/S2 are heard. No murmurs gallops or rubs. LUNGS: Clear to auscultation bilaterally. No wheeze, rhonchi or rales. No use of accessory muscles on inspiration or expiration. ABDOMEN: Soft, nontender. Nondistended. Bowel sounds heard in all 4 quadrants. No organomegaly or masses. Negative rebound, negative guarding EXTREMITIES: 2+ pitting edema noted in bilateral lower extremity. No cyanosis or clubbing NEUROLOGY: Cranial nerves II through XII grossly intact. Moving all extremities , speech clear - Urinary Catheter Management Indwelling Urethral Catheter Cath placed during this visit: yes Reason for continuing: Hourly intake/output Insertion date: 08/26/17 Insertion time: 03:58 Results - Labs CBC & Chem 7: 08/28/17 03:40 08/28/17 03:40 Laboratory Results - last 24 hr 08/27/17 08/27/17 08/27/17 05:15 19:51 19:51 WBC 14.5 H RBC 3.85 L Hgb 12.8 L Hct 38.6 L MCV 100.2 H MCH 33.1 MCHC 33.0 RDW 14.5 Plt Count 167 MPV 8.7 Neut % (Auto) Lymph % (Auto) [place] % (Auto) Eos % (Auto) Baso % (Auto) Neut # (Auto) Lymph # (Auto) [place] # (Auto) Eos # (Auto) Baso # (Auto) WBC Differential Differential Comment APTT 32.7 H D Sodium Potassium Chloride Carbon Dioxide Anion Gap BUN Creatinine Estimated GFR Random Glucose Hemoglobin A1c 5.8 Calcium Total Bilirubin AST ALT Alkaline Phosphatase Total Protein Albumin 08/28/17 08/28/17 08/28/17 00:00 03:40 03:40 WBC 14.0 H RBC 3.82 L Hgb 12.7 L Hct 38.1 L MCV 99.8 MCH 33.3 MCHC 33.3 RDW 14.3 Plt Count 171 MPV 8.5 Neut % (Auto) 84.9 H Lymph % (Auto) 7.3 L [place] % (Auto) 7.3 Eos % (Auto) 0.1 Baso % (Auto) 0.4 Neut # (Auto) 11.8 H Lymph # (Auto) 1.0 [place] # (Auto) 1.0 H Eos # (Auto) 0.0 Baso # (Auto) 0.1 WBC Differential . Differential Comment Auto diff final APTT 35.5 H Sodium 130 L Potassium 3.7 Chloride 93 L Carbon Dioxide 24.6 Anion Gap 12 BUN 27 H Creatinine 1.87 H Estimated GFR 37 L Random Glucose 116 H Hemoglobin A1c Calcium 8.6 Total Bilirubin 3.1 H AST 53 H ALT 48 Alkaline Phosphatase 93 Total Protein 6.8 Albumin 2.9 L Microbiology 08/26/17 05:05 Blood - Peripheral Aerobic Blood Culture - Preliminary No growth in 1 day 08/26/17 05:05 Blood - Peripheral Anaerobic Blood Culture - Preliminary No growth in 1 day 08/26/17 05:00 Blood - Peripheral Aerobic Blood Culture - Preliminary No growth in 1 day 08/26/17 05:00 Blood - Peripheral Anaerobic Blood Culture - Preliminary No growth in 1 day - Procedures Awaiting echocardiogram Assessment and Plan - Plan Acute systolic congestive heart failure, improving EF 40-45%. -hold Lasix 40 mg IV every 12 hours s/t renal insufficiency. -Continue monitor strict input and output. -Continue beta-magnolia, hold AMEE inhibitor. -cardiology planning on cath once renal function improves. Acute hypoxic respiratory failure, resolved -Secondary to congestive heart failure, fluid overload -Continue to wean oxygen to maintain O2 sat greater than 92% -Duo nebs every 6 hours while awake and every 2 hours as needed Chronic atrial fibrillation -Patient continued on Coreg and Cardizem. Holding parameters in place. -Patient currently on heparin IV -Cardiology following Chronic alcohol abuse -Continue monitor for any withdrawal -Ativan as needed for seizures -Librium as needed for any withdrawal symptoms DVT prevention -Heparin IV, patient will be started on Eliquis -Sequential compression devices
[2017-08-28] MEDS: Carvedilol 12.5 MG Tablet PO SCH (08:36)
[2017-08-28] MEDS: Aspirin 325 MG Tablet PO SCH (08:36)
[2017-08-28] MEDS: Senna/Docusate Sodium 8.6/50 MG Tablet PO SCH ×2 (08:36→21:38)
[2017-08-28] MEDS: Furosemide 40 MG Tablet PO SCH (08:36)
[2017-08-28] MEDS: Lisinopril 5 MG Tablet PO SCH (08:37)
[2017-08-28] MEDS: Famotidine PF Inj 20 MG/2 ML Vial IV.PUSH SCH ×2 (08:37→21:38)
[2017-08-28] MEDS: dilTIAZem 60 MG Tablet PO SCH ×3 (11:13→23:48)
--- NOTE | 2017-08-28 12:37 | P.PNCA ---
Subjective Interval history: asleep in nad Physical Exam Vital signs: Vital Signs 08/27/17 13:00 08/27/17 14:00 08/27/17 15:00 Temperature 98.2 F Pulse Rate 70 74 68 Respiratory Rate 18 Blood Pressure 100/68 Pulse Oximetry 96 08/27/17 16:00 08/27/17 16:54 08/27/17 17:11 Temperature Pulse Rate 75 84 76 Respiratory Rate Blood Pressure Pulse Oximetry 08/27/17 19:00 08/27/17 20:09 08/27/17 23:00 Temperature 97.8 F 97.8 F Pulse Rate 86 66 75 Respiratory Rate 20 24 20 Blood Pressure 103/62 91/53 L Pulse Oximetry 95 94 L 95 08/28/17 00:00 08/28/17 01:00 08/28/17 02:39 Temperature Pulse Rate 75 66 67 Respiratory Rate Blood Pressure Pulse Oximetry 08/28/17 03:00 08/28/17 04:00 08/28/17 05:00 Temperature 97.9 F Pulse Rate 88 83 87 Respiratory Rate 20 20 Blood Pressure 95/55 L Pulse Oximetry 95 08/28/17 07:00 08/28/17 07:35 08/28/17 08:00 Temperature 98.2 F Pulse Rate 88 87 71 Respiratory Rate 20 20 Blood Pressure 91/53 L Pulse Oximetry 96 95 08/28/17 09:00 08/28/17 10:00 08/28/17 10:57 Temperature 98.6 F Pulse Rate 82 82 82 Respiratory Rate 20 Blood Pressure 99/59 L Pulse Oximetry 95 08/28/17 11:00 08/28/17 12:00 Temperature Pulse Rate 79 80 Respiratory Rate Blood Pressure Pulse Oximetry Intake & Output 08/27/17 08/28/17 08/28/17 18:59 06:59 18:59 Intake Total 589 / 589 240 / 240 Output Total 850 / 850 550 / 550 Balance -261 / -261 -310 / -310 Weight 104 kg Intake: IV 109 / 109 Heparin/D5W 25,000 U/250 mL 25, 109 / 109 000 unit In 250 ml @ Per Protocol IV.CONT TITRATE PRN Rx #:[id number] Oral 480 / 480 240 / 240 Output: Urine 850 / 850 550 / 550 Other: Date of Last Bowel Movement 08/25/17 # Bowel Movements 0 - Urinary Catheter Management Indwelling Urethral Catheter Cath placed during this visit: yes Reason for continuing: Hourly intake/output Insertion date: 08/26/17 Insertion time: 03:58 Assessment and Plan - Assessment (1) CHF (congestive heart failure) Code(s): I50.9 - Heart failure, unspecified Status: Acute (2) NSTEMI (non-ST elevated myocardial infarction) Code(s): I21.4 - Non-ST elevation (NSTEMI) myocardial infarction Status: Acute (3) ARF (acute renal failure) Code(s): N17.9 - Acute kidney failure, unspecified Status: Acute (4) Afib Code(s): I48.91 - Unspecified atrial fibrillation Status: Acute - Plan Code Status: 1.) NSTEMI - renal consult, r and c if when cleared by renal, continue heparin , eliquis held 2.) Afib - rate controlled on heparin drip 3.) CHF - diuretics per renal
[2017-08-28] MEDS: Heparin Drip 25,000 UNIT/250 ML BAG IV.CONT PRN (14:12)
--- NOTE | 2017-08-28 15:08 | P.CONNP ---
<Jossy Ortega - Last Filed: 08/28/17 14:52> History of Present Illness Service: Nephrology Consult date: 08/28/17 Reason for Consult: Acute Renal Failure Primary Care Provider: No Primary Care Physician Family Provider: No Primary Care Physician History of Present Illness: This is a 62 y/o male patient who is visiting from [place]. He was admitted on for shortness of breath, CHF exacerbation. His creatinine was 1.35 that has increased gradually to 1.87 today. His troponin peaked on the at 0.15, he was evaluated by cardiology for treatment of NSTEMI. His cardiac cath was postponed until tomorrow as he developed ADORE, and is on Heparin gtt currently. The patient reports he has had normal urine output, is not in distress, not fluid overloaded. We were consulted to assist with management. He is a full code. PMH includes A fib and CHF. No baseline labs are available, he denies hx of CKD. Review of Systems All other systems reviewed negative except as stated in HPI Cardiovascular: Reports leg swelling, Denies chest pain, Denies chest pain at rest, Denies chest pain with activity, Denies fast heart rate Respiratory: Reports shortness of breath, Reports shortness of breath with activity, Denies cough, Denies wheezing Gastrointestinal: Denies abdominal pain PMFSH - History History Provided By: Patient - Medical History Medical History: Medical History (Last Reviewed 08/28/17 @ 08:37 by Jose Enrique Kennedy) Back pain (Acute) Skin cancer (Acute) Afib (Acute) - Surgical History Surgical History: Surgical History (Last Updated 08/26/17 @ 14:43 by Salena Peterson RN) Hx of oral surgery (Acute) - Tobacco History Second Hand Smoke Exposure: No Tobacco Use In Past 30 Days: Yes Smoking Status: Current every day smoker Tobacco Type: Cigarettes - Alcohol History How Often Do You Have a Drink Containing Alcohol: 4 or more times a week - Substance Use History Substance History: No History of Abuse - Travel History History of Recent Travel: Yes (from [place]) Recent Travel in the [facility] Within the Last 8 Weeks: Yes Recent Travel Out of the Country Within the Last 8 Weeks: No - Immunization History Tetanus Immunization: Unsure Hx Influenza Vaccine This Season: No Medications and Allergies Allergies Allergy/AdvReac Type Severity Reaction Status Date / Time No Known Allergies Allergy Verified 08/26/17 01:34 Home Medications Medication Instructions Recorded Confirmed Type aspirin 325 mg PO DAILY 08/26/17 08/26/17 History furosemide [Lasix] 40 mg PO BID 08/26/17 08/26/17 History Active Medications: Active Medications Acetaminophen (Tylenol) 650 mg PO Q6H PRN PRN Reason: PAIN 1-5 AND/OR FEVER >101F Al Hydroxide/Mg Hydroxide (Milk Of Magnjerome Liq) 30 ml PO Q12H PRN PRN Reason: Mild Constipation Albuterol (Duoneb Neb (Prn)) 1 ampul NEB Q2HR NEB PRN PRN Reason: WHEEZING Last Admin: 08/28/17 05:00 Dose: 1 ampul Albuterol (Duoneb Neb (Portia)) 1 ampul NEB Q6HR WHILE AWAKE NEB [facility] Last Admin: 08/28/17 07:36 Dose: 1 ampul Apixaban (Eliquis) 2.5 mg PO BID [facility] Last Admin: 08/27/17 13:10 Dose: 2.5 mg Aspirin (Aspirin) 325 mg PO DAILY [facility] Last Admin: 08/28/17 08:36 Dose: 325 mg Bisacodyl (Dulcolax Supp) 10 mg RECTAL DAILY PRN PRN Reason: SEVERE CONSITIPATION Carvedilol (Coreg) 3.125 mg PO BID [facility] Last Admin: 08/28/17 09:55 Dose: Not Given Chlordiazepoxide (Librium) 10 mg PO Q8H PRN PRN Reason: WITHDRAWAL Chlorhexidine Gluconate (Chlorhexidine 2% Cloth) 3 pack TOPICAL DAILY@0400 PRN PRN Reason: Extra cloth needed Stop: 09/01/17 03:59 Chlorhexidine Gluconate (Chlorhexidine 2% Cloth) 1 pack TOPICAL UNSCH [facility] Diltiazem HCl (Cardizem) 60 mg PO Q6HR [facility] Last Admin: 08/28/17 11:13 Dose: Not Given Famotidine (Pepcid Pf Inj) 20 mg IV.PUSH Q12HR [facility] Last Admin: 08/28/17 08:37 Dose: 20 mg Furosemide (Lasix) 40 mg PO BID [facility] Last Admin: 08/28/17 08:36 Dose: 40 mg Heparin Sodium (Porcine) (Heparin Inj) 5,000 units IV.PUSH UNSCH PRN PRN Reason: aPTT < 25 Last Admin: 08/28/17 09:57 Dose: 5,000 units Heparin Sodium (Porcine) (Heparin Inj) 2,500 units IV.PUSH UNSCH PRN PRN Reason: aPTT 25-39 Last Admin: 08/28/17 09:57 Dose: 2,500 units Hydralazine HCl (Apresoline) 25 mg PO Q8H PRN PRN Reason: sbp > 160 Heparin Sodium/Dextrose (Heparin/D5w 25,000 U/250 Ml) 25,000 unit in 250 mls @ 10 mls/hr IV.CONT TITRATE PRN; Protocol PRN Reason: Per Protocol Last Admin: 08/28/17 14:12 Dose: 1,200 unit/hr, 12 mls/hr Lactulose (Lactulose Liq) 30 ml PO DAILY PRN PRN Reason: SEVERE CONSITIPATION Lisinopril (Prinivil) 2.5 mg PO DAILY [facility] Last Admin: 08/28/17 08:37 Dose: Not Given Lorazepam (Ativan Inj) 1 mg IV.PUSH Q2H PRN PRN Reason: SEIZURES Ondansetron HCl (Zofran Inj) 4 mg IV.PUSH Q6H PRN PRN Reason: NAUSEA OR VOMITING Senna/Docusate Sodium (Jessica-Colace) 1 tab PO BID [facility] Last Admin: 08/28/17 08:36 Dose: 1 tab Sennosides (Senokot) 17.2 mg PO Q12H PRN PRN Reason: Moderate Constipation Sodium Chloride (Ns Flush) 2 ml IV.FLUSH BID [facility] Last Admin: 08/28/17 08:37 Dose: 2 ml Sodium Chloride (Ns Flush) 2 ml IV.FLUSH PRN PRN PRN Reason: FLUSH AFTER USING IV ACCESS Last Admin: 08/27/17 20:48 Dose: 2 ml Exam Vital signs: Vital Signs 08/27/17 15:00 08/27/17 16:00 08/27/17 16:54 Temperature 98.2 F Pulse Rate 68 75 84 Respiratory Rate 18 Blood Pressure 100/68 Pulse Oximetry 96 08/27/17 17:11 08/27/17 19:00 08/27/17 20:09 Temperature 97.8 F Pulse Rate 76 86 66 Respiratory Rate 20 24 Blood Pressure 103/62 Pulse Oximetry 95 94 L 08/27/17 23:00 08/28/17 00:00 08/28/17 01:00 Temperature 97.8 F Pulse Rate 75 75 66 Respiratory Rate 20 Blood Pressure 91/53 L Pulse Oximetry 95 08/28/17 02:39 08/28/17 03:00 08/28/17 04:00 Temperature 97.9 F Pulse Rate 67 88 83 Respiratory Rate 20 Blood Pressure 95/55 L Pulse Oximetry 95 08/28/17 05:00 08/28/17 07:00 08/28/17 07:35 Temperature 98.2 F Pulse Rate 87 88 87 Respiratory Rate 20 20 20 Blood Pressure 91/53 L Pulse Oximetry 96 95 08/28/17 08:00 08/28/17 09:00 08/28/17 10:00 Temperature Pulse Rate 71 82 82 Respiratory Rate Blood Pressure Pulse Oximetry 08/28/17 10:57 08/28/17 11:00 08/28/17 12:00 Temperature 98.6 F Pulse Rate 82 79 80 Respiratory Rate 20 Blood Pressure 99/59 L Pulse Oximetry 95 08/28/17 13:00 08/28/17 14:00 Temperature Pulse Rate 86 85 Respiratory Rate Blood Pressure Pulse Oximetry Intake & Output 08/27/17 08/28/17 08/28/17 18:59 06:59 18:59 Intake Total 589 / 589 240 / 240 250 / 250 Output Total 850 / 850 550 / 550 Balance -261 / -261 -310 / -310 250 / 250 Weight 104 kg Intake: IV 109 / 109 250 / 250 Heparin/D5W 25,000 U/250 mL 25, 109 / 109 250 / 250 000 unit In 250 ml @ 1,000 UNIT /HR 10 mls/hr IV.CONT TITRATE PRN Rx#:[id number] Oral 480 / 480 240 / 240 Output: Urine 850 / 850 550 / 550 Other: Date of Last Bowel Movement 08/25/17 # Bowel Movements 0 - Constitutional no acute distress, morbidly obese, cooperative - Routine HEENT Exam Head: Present: normocephalic - Routine Neck Exam Present: supple, full ROM. Absent: JVD, carotid bruit - Routine Respiratory Exam Present: CTA bilaterally. Absent: accessory muscle use, respiratory distress, diminished air movement - Routine Cardiovascular Exam Present: S1, S2. Absent: murmur - Routine Abdominal Exam Present: soft, normoactive bowel sounds - Routine Extremities Exam Present: pulses intact. Absent: edema - Routine Skin Exam Present: intact, warm - Routine Neurological Exam Present: alert, oriented X3, CN II-XII intact Results - Lab Results 08/28/17 03:40 08/28/17 03:40 Most recent lab results ABG pH 7.34 (7.380-7.420) L 08/26/17 22:40 ABG pCO2 44 mmHg (38-42) H 08/26/17 22:40 ABG pO2 81 mmHG (61-120) 08/26/17 22:40 ABG HCO3 23 mmol/L (22-26) 08/26/17 22:40 Calcium 8.6 mg/dL (8.5-10.1) 08/28/17 03:40 Phosphorus 3.7 mg/dL (2.5-4.9) 08/27/17 05:15 Magnesium 1.8 mg/dL (1.5-2.5) 08/27/17 05:15 Assessment and Plan - Assessment (1) ARF (acute renal failure) Code(s): N17.9 - Acute kidney failure, unspecified Status: Acute Plan: Denies hx of CKD, no baseline labs available, he is visiting from [place] most likely due to NSTEMI He is non oliguric Awaiting renal US and UA In preparation of cardiac catheterization tomorrow, begin 0.9% NS @ 50 cc/hr at 2100 tonight Repeat labs tomorrow Hold diuretic dose tonight also AM dose. Resume tomorrow. Avoid additional nephrotoxic agents. His risk of developing contrast induced nephropathy is around 26% if 100 ml or less of contrast is used. His risk of requiring HD is 1.09%. (2) NSTEMI (non-ST elevated myocardial infarction) Code(s): I21.4 - Non-ST elevation (NSTEMI) myocardial infarction Status: Acute Plan: On Heparin gtt, cardiology following Plan for cardiac cath tomorrow. IVF in preparation of dye load, see above (3) CHF (congestive heart failure) Code(s): I50.9 - Heart failure, unspecified Status: Acute Plan: On Lasix 40 mg PO BID Hold PM and tomorrow AM dose Monitor fluid status Cautious IVF tonight. <Vito Claudio - Last Filed: 08/28/17 19:50> History of Present Illness Primary Care Provider: No Primary Care Physician Family Provider: No Primary Care Physician [facility] - Medical History Medical History: Medical History (Last Reviewed 08/28/17 @ 08:37 by Jose Enrique Kennedy) Back pain (Acute) Skin cancer (Acute) Afib (Acute) - Surgical History Surgical History: Surgical History (Last Updated 08/26/17 @ 14:43 by Salena Peterson RN) Hx of oral surgery (Acute) Medications and Allergies Active Medications: Active Medications Acetaminophen (Tylenol) 650 mg PO Q6H PRN PRN Reason: PAIN 1-5 AND/OR FEVER >101F Al Hydroxide/Mg Hydroxide (Milk Of Magnjerome Liq) 30 ml PO Q12H PRN PRN Reason: Mild Constipation Albuterol (Duoneb Neb (Prn)) 1 ampul NEB Q2HR NEB PRN PRN Reason: WHEEZING Last Admin: 08/28/17 05:00 Dose: 1 ampul Albuterol (Duoneb Neb (Portia)) 1 ampul NEB Q6HR WHILE AWAKE NEB [facility] Last Admin: 08/28/17 19:42 Dose: Not Given Apixaban (Eliquis) 2.5 mg PO BID [facility] Last Admin: 08/27/17 13:10 Dose: 2.5 mg Aspirin (Aspirin) 325 mg PO DAILY [facility] Last Admin: 08/28/17 08:36 Dose: 325 mg Bisacodyl (Dulcolax Supp) 10 mg RECTAL DAILY PRN PRN Reason: SEVERE CONSITIPATION Carvedilol (Coreg) 3.125 mg PO BID [facility] Last Admin: 08/28/17 09:55 Dose: Not Given Chlordiazepoxide (Librium) 10 mg PO Q8H PRN PRN Reason: WITHDRAWAL Chlorhexidine Gluconate (Chlorhexidine 2% Cloth) 3 pack TOPICAL DAILY@0400 PRN PRN Reason: Extra cloth needed Stop: 09/01/17 03:59 Chlorhexidine Gluconate (Chlorhexidine 2% Cloth) 1 pack TOPICAL UNSCH [facility] Diltiazem HCl (Cardizem) 60 mg PO Q6HR [facility] Last Admin: 08/28/17 17:47 Dose: Not Given Famotidine (Pepcid Pf Inj) 20 mg IV.PUSH Q12HR [facility] Last Admin: 08/28/17 08:37 Dose: 20 mg Furosemide (Lasix) 40 mg PO BID [facility] Last Admin: 08/28/17 08:36 Dose: 40 mg Heparin Sodium (Porcine) (Heparin Inj) 5,000 units IV.PUSH UNSCH PRN PRN Reason: aPTT < 25 Last Admin: 08/28/17 19:40 Dose: 5,000 units Heparin Sodium (Porcine) (Heparin Inj) 2,500 units IV.PUSH UNSCH PRN PRN Reason: aPTT 25-39 Last Admin: 08/28/17 09:57 Dose: 2,500 units Hydralazine HCl (Apresoline) 25 mg PO Q8H PRN PRN Reason: sbp > 160 Heparin Sodium/Dextrose (Heparin/D5w 25,000 U/250 Ml) 25,000 unit in 250 mls @ 10 mls/hr IV.CONT TITRATE PRN; Protocol PRN Reason: Per Protocol Last Titration: 08/28/17 19:39 Dose: 1,300 unit/hr, 13 mls/hr Sodium Chloride (Ns Inj) 1,000 mls @ 50 mls/hr IV.CONT .Q20H [facility] Stop: 08/29/17 12:00 Lactulose (Lactulose Liq) 30 ml PO DAILY PRN PRN Reason: SEVERE CONSITIPATION Lisinopril (Prinivil) 2.5 mg PO DAILY [facility] Last Admin: 08/28/17 08:37 Dose: Not Given Lorazepam (Ativan Inj) 1 mg IV.PUSH Q2H PRN PRN Reason: SEIZURES Ondansetron HCl (Zofran Inj) 4 mg IV.PUSH Q6H PRN PRN Reason: NAUSEA OR VOMITING Senna/Docusate Sodium (Jessica-Colace) 1 tab PO BID [facility] Last Admin: 08/28/17 08:36 Dose: 1 tab Sennosides (Senokot) 17.2 mg PO Q12H PRN PRN Reason: Moderate Constipation Sodium Chloride (Ns Flush) 2 ml IV.FLUSH BID [facility] Last Admin: 08/28/17 08:37 Dose: 2 ml Sodium Chloride (Ns Flush) 2 ml IV.FLUSH PRN PRN PRN Reason: FLUSH AFTER USING IV ACCESS Last Admin: 08/27/17 20:48 Dose: 2 ml Exam Vital signs: Vital Signs 08/27/17 20:09 08/27/17 23:00 08/28/17 00:00 Temperature 97.8 F Pulse Rate 66 75 75 Respiratory Rate 24 20 Blood Pressure 91/53 L Pulse Oximetry 94 L 95 08/28/17 01:00 08/28/17 02:39 08/28/17 03:00 Temperature 97.9 F Pulse Rate 66 67 88 Respiratory Rate 20 Blood Pressure 95/55 L Pulse Oximetry 95 08/28/17 04:00 08/28/17 05:00 08/28/17 07:00 Temperature 98.2 F Pulse Rate 83 87 88 Respiratory Rate 20 20 Blood Pressure 91/53 L Pulse Oximetry 96 08/28/17 07:35 08/28/17 08:00 08/28/17 09:00 Temperature Pulse Rate 87 71 82 Respiratory Rate 20 Blood Pressure Pulse Oximetry 95 08/28/17 10:00 08/28/17 10:57 08/28/17 11:00 Temperature 98.6 F Pulse Rate 82 82 79 Respiratory Rate 20 Blood Pressure 99/59 L Pulse Oximetry 95 08/28/17 12:00 08/28/17 13:00 08/28/17 14:00 Temperature Pulse Rate 80 86 85 Respiratory Rate Blood Pressure Pulse Oximetry 08/28/17 15:00 08/28/17 16:00 08/28/17 17:00 Temperature 98.6 F Pulse Rate 82 89 88 Respiratory Rate 20 Blood Pressure 99/59 L Pulse Oximetry 95 08/28/17 18:00 08/28/17 19:43 Temperature Pulse Rate 90 Respiratory Rate Blood Pressure Pulse Oximetry 95 Intake & Output 08/28/17 08/28/17 08/29/17 06:59 18:59 06:59 Intake Total 240 / 240 1150 / 1150 Output Total 550 / 550 800 / 800 Balance -310 / -310 350 / 350 Weight 104 kg Intake: IV 250 / 250 Heparin/D5W 25,000 U/250 mL 25, 250 / 250 000 unit In 250 ml @ 1,000 UNIT /HR 10 mls/hr IV.CONT TITRATE PRN Rx#:[id number] Oral 240 / 240 900 / 900 Output: Urine 550 / 550 Urine Amount (Catheter) 800 / 800 Indwelling Urethral Catheter 800 / 800 Other: Date of Last Bowel Movement 08/25/17 Results - Lab Results 08/28/17 03:40 08/28/17 03:40 Most recent lab results ABG pH 7.34 (7.380-7.420) L 08/26/17 22:40 ABG pCO2 44 mmHg (38-42) H 08/26/17 22:40 ABG pO2 81 mmHG (61-120) 08/26/17 22:40 ABG HCO3 23 mmol/L (22-26) 08/26/17 22:40 Calcium 8.6 mg/dL (8.5-10.1) 08/28/17 03:40 Phosphorus 3.7 mg/dL (2.5-4.9) 08/27/17 05:15 Magnesium 1.8 mg/dL (1.5-2.5) 08/27/17 05:15 Assessment and Plan - Assessment (1) ARF (acute renal failure) Code(s): N17.9 - Acute kidney failure, unspecified Status: Acute (2) NSTEMI (non-ST elevated myocardial infarction) Code(s): I21.4 - Non-ST elevation (NSTEMI) myocardial infarction Status: Acute (3) CHF (congestive heart failure) Code(s): I50.9 - Heart failure, unspecified Status: Acute - Attending Attestation patient was seen and examined. Agree with above assessment and plan.
--- NOTE | 2017-08-28 17:28 | US ---
EXAM DATE: 08/28/2017 5:18 PM EDT AGE/SEX: 62 years / Male INDICATIONS: Acute kidney injury. CLINICAL DATA: This is the patient's initial encounter. Patient reports that signs and symptoms have been present for 1 day and indicates a pain score of 0/10. MEDICAL/SURGICAL HISTORY: Congestive heart failure. Afib. Skin cancer. Back pain. NC. Tonsille ctomy. COMPARISON: No prior exams available for comparison. MEASUREMENTS: Right Kidney:__10.8 x 5.3 x 5.2 cm Left Kidney:__10.8 x 5.6 x 5.8 cm FINDINGS: Right Kidney: Increased echotexture. No mass or hydronephrosis. Left Kidney: Increased echotexture. No mass or hydronephrosis. Bladder: Holm catheter is present. Bladder decompressed. Other: None. CONCLUSION: 1. There is mild increased echogenicity of the renal parenchyma bilaterally. This can be seen with c hronic medical renal disease. 2. No evidence of hydronephrosis. Electronically signed by: Joel Ramirez MD 08/28/2017 5:27 PM EDT
[2017-08-28] MEDS ORDERED: Sod Chloride 0.9% Inj 1,000 ML IV.CONT SCH (21:00)
[2017-08-28 21:40] LABS: Bilirubin,Urine Negative (Negative); Clarity,Urine Hazy (Clear); Color,Urine Yellow (Yellw/Straw); Glucose,Urine (UA) Negative (Negative); Leukocyte Esterase,Urine Trace (Negative); Nitrite,Urine Negative (Negative)
[2017-08-29] MEDS: dilTIAZem 60 MG Tablet PO SCH ×3 (06:46→11:17)
[2017-08-29 07:43] LABS: Baso % (Auto) 0.3 % (0.0-2.0); Eos % (Auto) 0.3 % (0.0-4.0); Hemoglobin 13.3 gm/dL (13.0-17.0); Lymph # (Auto) 1.2 th/mm3 (1.0-4.8); Lymph % (Auto) 9.7 % (9.0-44.0); Mean Corpuscular Hemoglobin 33.9 pg (27.0-34.0); Mean Corpuscular Volume 99.7 fL (80.0-100.0); Mean Platelet Volume 8.9 fL (7.0-11.0); Mono # (Auto) 1.1 th/mm3 (0.0-0.9); Mono % (Auto) 8.5 % (0.0-8.0); Neut # (Auto) 10.3 th/mm3 (1.8-7.7); Neut % (Auto) 81.2 % (16.0-70.0); Platelet Count 186 th/mm3 (150-450); Red Blood Count 3.92 mil/mm3 (4.50-5.90); Red Cell Distribution Width 14.6 % (11.6-17.2); White Blood Count 12.8 th/mm3 (4.0-11.0)
[2017-08-29 08:00] LABS: Calcium 8.5 mg/dL (8.5-10.1); Carbon Dioxide 28.2 meq/L (21.0-32.0); Potassium 3.4 meq/L (3.5-5.1)
--- NOTE | 2017-08-29 08:49 | P.PNIM ---
Subjective Interval history: The patient was sitting up in bed, eating breakfast. He said he had some sort of a renal study to do soon. He wanted the Holm catheter removed. He had no acute complaints. Physical Exam Vital signs: Vital Signs 08/28/17 09:00 08/28/17 10:00 08/28/17 10:57 Temperature 98.6 F Pulse Rate 82 82 82 Respiratory Rate 20 Blood Pressure 99/59 L Pulse Oximetry 95 08/28/17 11:00 08/28/17 12:00 08/28/17 13:00 Temperature Pulse Rate 79 80 86 Respiratory Rate Blood Pressure Pulse Oximetry 08/28/17 14:00 08/28/17 15:00 08/28/17 16:00 Temperature 98.6 F Pulse Rate 85 82 89 Respiratory Rate 20 Blood Pressure 99/59 L Pulse Oximetry 95 08/28/17 17:00 08/28/17 18:00 08/28/17 19:43 Temperature Pulse Rate 88 90 Respiratory Rate Blood Pressure Pulse Oximetry 95 08/28/17 21:00 08/28/17 23:46 08/29/17 01:00 Temperature 98.7 F 97.9 F Pulse Rate 70 101 H 108 H Respiratory Rate 18 18 Blood Pressure 105/57 L 93/54 L Pulse Oximetry 94 L 94 L 08/29/17 04:06 08/29/17 05:00 08/29/17 07:50 Temperature 98 F Pulse Rate 90 98 H Respiratory Rate 20 Blood Pressure 127/62 Pulse Oximetry 96 92 L Intake & Output 08/28/17 08/29/17 08/29/17 18:59 06:59 18:59 Intake Total 1150 / 1150 240 / 240 Output Total 800 / 800 650 / 650 Balance 350 / 350 -410 / -410 Weight 102.5 kg Intake: IV 250 / 250 Heparin/D5W 25,000 U/250 mL 25, 250 / 250 000 unit In 250 ml @ 1,000 UNIT /HR 10 mls/hr IV.CONT TITRATE PRN Rx#:[id number] Oral 900 / 900 240 / 240 Output: Urine Amount (Catheter) 800 / 800 650 / 650 Indwelling Urethral Catheter 800 / 800 650 / 650 Other: Date of Last Bowel Movement 08/25/17 Narrative: GENERAL: Well-developed, well-nourished, in no acute distress. HEENT: Head is normocephalic without any lesions or masses noted. Facial features are symmetric. NECK: Supple without any masses. Trachea midline no deviation. No JVD, no bruits are appreciated. CARDIAC: Irregular rhythm, irregular rate. S1/S2 are heard. No murmurs gallops or rubs. LUNGS: Clear to auscultation bilaterally. No wheeze, rhonchi or rales. No use of accessory muscles on inspiration or expiration. ABDOMEN: Soft, nontender. Nondistended. Bowel sounds heard in all 4 quadrants. No organomegaly or masses. Negative rebound, negative guarding EXTREMITIES: TR edema noted in bilateral lower extremity. No cyanosis or clubbing NEUROLOGY: Cranial nerves II through XII grossly intact. Moving all extremities , speech clear - Urinary Catheter Management Indwelling Urethral Catheter Cath placed during this visit: yes Reason for continuing: Hourly intake/output Insertion date: 08/26/17 Insertion time: 03:58 Results - Labs CBC & Chem 7: 08/29/17 06:56 08/29/17 06:02 Laboratory Results - last 24 hr 08/28/17 08/28/17 08/28/17 07:50 17:00 18:20 WBC RBC Hgb Hct MCV MCH MCHC RDW Plt Count MPV Neut % (Auto) Lymph % (Auto) [place] % (Auto) Eos % (Auto) Baso % (Auto) Neut # (Auto) Lymph # (Auto) [place] # (Auto) Eos # (Auto) Baso # (Auto) WBC Differential Differential Comment APTT 34.9 H 27.0 D Sodium Potassium Chloride Carbon Dioxide Anion Gap BUN Creatinine Estimated GFR Random Glucose Calcium Urine Color Yellow Urine Clarity Hazy H Urine pH 6.0 Ur Specific [place] 1.010 Urine Protein 100 H Urine Glucose (UA) Negative Urine Ketones Negative Urine Occult Blood Large H Urine Nitrate Negative Urine Bilirubin Negative Urine Urobilinogen Less than 2 Ur Leukocyte Esterase Trace H Urine RBC 10 H Urine WBC 4 Micro UA Comment Cath-culture not ind Urine Culture Comments Cath-cult not ind 08/29/17 08/29/17 08/29/17 00:36 06:02 06:56 WBC 12.8 H RBC 3.92 L Hgb 13.3 Hct 39.0 MCV 99.7 MCH 33.9 MCHC 34.0 RDW 14.6 Plt Count 186 MPV 8.9 Neut % (Auto) 81.2 H Lymph % (Auto) 9.7 [place] % (Auto) 8.5 H Eos % (Auto) 0.3 Baso % (Auto) 0.3 Neut # (Auto) 10.3 H Lymph # (Auto) 1.2 [place] # (Auto) 1.1 H Eos # (Auto) 0.0 Baso # (Auto) 0.0 WBC Differential . Differential Comment Auto diff final APTT 41.2 H D Sodium 130 L Potassium 3.4 L Chloride 91 L Carbon Dioxide 28.2 Anion Gap 11 BUN 26 H Creatinine 1.57 H Estimated GFR 45 L Random Glucose 101 Calcium 8.5 Urine Color Urine Clarity Urine pH Ur Specific [place] Urine Protein Urine Glucose (UA) Urine Ketones Urine Occult Blood Urine Nitrate Urine Bilirubin Urine Urobilinogen Ur Leukocyte Esterase Urine RBC Urine WBC Micro UA Comment Urine Culture Comments 08/29/17 06:56 WBC RBC Hgb Hct MCV MCH MCHC RDW Plt Count MPV Neut % (Auto) Lymph % (Auto) [place] % (Auto) Eos % (Auto) Baso % (Auto) Neut # (Auto) Lymph # (Auto) [place] # (Auto) Eos # (Auto) Baso # (Auto) WBC Differential Differential Comment APTT 36.2 H Sodium Potassium Chloride Carbon Dioxide Anion Gap BUN Creatinine Estimated GFR Random Glucose Calcium Urine Color Urine Clarity Urine pH Ur Specific [place] Urine Protein Urine Glucose (UA) Urine Ketones Urine Occult Blood Urine Nitrate Urine Bilirubin Urine Urobilinogen Ur Leukocyte Esterase Urine RBC Urine WBC Micro UA Comment Urine Culture Comments Microbiology 08/26/17 05:05 Blood - Peripheral Aerobic Blood Culture - Preliminary No growth in 2 days 08/26/17 05:05 Blood - Peripheral Anaerobic Blood Culture - Preliminary No growth in 2 days 08/26/17 05:00 Blood - Peripheral Aerobic Blood Culture - Preliminary No growth in 2 days 08/26/17 05:00 Blood - Peripheral Anaerobic Blood Culture - Preliminary No growth in 2 days - Imaging Impressions Abdomen/Bladder Ultrasound 08/28/17 00:00 CONCLUSION: 1. There is mild increased echogenicity of the renal parenchyma bilaterally. This can be seen with chronic medical renal disease. 2. No evidence of hydronephrosis. - Procedures Awaiting echocardiogram Assessment and Plan - Plan Acute systolic congestive heart failure, improving EF 40-45%. -hold Lasix 40 mg IV every 12 hours and lisinopril s/t renal insufficiency. -Continue monitor strict input and output. -decrease beta-magnolia s/t hypotension. -cardiology planning on cath once renal function improves. Acute hypoxic respiratory failure, resolved -Secondary to congestive heart failure, fluid overload -Continue to wean oxygen to maintain O2 sat greater than 92% -Duo nebs every 6 hours while awake and every 2 hours as needed -incentive spirometry -PT Acute renal failure Nephrology consult appreciated. - work-up per nephrology. - holding diuretics/ ACEi. - follow BMP and avoid nephrotoxins. Chronic atrial fibrillation -Patient continued on Coreg and Cardizem. Holding parameters in place. -Patient currently on heparin IV -Cardiology following Chronic alcohol abuse -Continue monitor for any withdrawal -Ativan as needed for seizures -Librium as needed for any withdrawal symptoms DVT prevention -Heparin IV, patient will be started on Eliquis -Sequential compression devices
[2017-08-29] MEDS: Senna/Docusate Sodium 8.6/50 MG Tablet PO SCH (09:53)
[2017-08-29] MEDS: Aspirin 325 MG Tablet PO SCH (09:53)
[2017-08-29] MEDS: Famotidine PF Inj 20 MG/2 ML Vial IV.PUSH SCH (09:54)
[2017-08-29] MEDS: Heparin Drip 25,000 UNIT/250 ML BAG IV.CONT PRN ×2 (09:58→11:15)
--- NOTE | 2017-08-29 12:42 | P.AMA ---
AMA Note - AMA Note Recommended Treatment Course: Cardiac catheterization, anticoagulation, further workup by nephrology AMA Statement: Patient Callum Antunez has decided to leave the hospital against medical advice. This patient has the capacity to refuse care and understands the risks of leaving, including permanent disability and/or , and has had an opportunity to ask questions about his/her condition. The patient has been informed that he/she may return for care at any time, and follow up has been arranged/advised. - AMA Note Discharge Disposition: Left Against Medical Advice Patient Condition on Discharge: Stable
--- NOTE | 2017-08-29 12:43 | P.DS ---
Date of admission: 08/26/17 03:24 Primary care physician: No Primary Care Physician Anticipated date of discharge: 08/29/17 Brief History from admission: 62-year-old gentleman with past medical history of atrial fibrillation presents with acute on chronic congestive heart failure exacerbation and progressively worsening shortness of breath. In the emergency department the patient was placed on the BiPAP with improvement of oxygenation. He denies chest pain, diaphoresis, nausea or vomiting. History is limited due to significant respiratory distress and requirement of continuous facemask BiPAP. DS: Diagnosis - Discharge Diagnosis (1) CHF (congestive heart failure) Status: Acute (2) NSTEMI (non-ST elevated myocardial infarction) Status: Acute (3) ARF (acute renal failure) Status: Acute (4) Afib Status: Acute DS: Summary Hospital Course: Acute systolic congestive heart failure Cardiology was consulted. EF 40-45%. He was diuresed with Lasix 40 mg IV every 12 hours. His troponin level was elevated. He was started on a heparin gtt. He was continued on a cardiac regimen. He was going to undergo a cardiac catheterization when his renal function improved but he demanded to leave the hospital AGAINST MEDICAL ADVICE. Acute hypoxic respiratory failure He was diuresed. He received oxygen. He was placed on Duonebs every 6 hours while awake and every 2 hours as needed. He received incentive spirometry. He worked with PT. Acute renal failure Catheterization was put on hold. Nephrology was consulted. Renal US negative for acute abnormality. Renal function improved after holding diuretics and giving IVFs. Chronic atrial fibrillation Patient was continued on Coreg and Cardizem with holding parameters. Patient was placed on a heparin gtt. Chronic alcohol abuse We monitored for any signs of withdrawal. He received Librium/ Ativan as needed for any withdrawal symptom. - Time Spent with Patient Total time spent providing and/or coordinating discharge services: Less than 30 minutes - Quality: VTE Deep Vein Thrombosis/Pulmonary Embolism Present on Admission: No Exam Vital signs: Vital Signs 08/28/17 13:00 08/28/17 14:00 08/28/17 15:00 Temperature 98.6 F Pulse Rate 86 85 82 Respiratory Rate 20 Blood Pressure 99/59 L Pulse Oximetry 95 08/28/17 16:00 08/28/17 17:00 08/28/17 18:00 Temperature Pulse Rate 89 88 90 Respiratory Rate Blood Pressure Pulse Oximetry 08/28/17 19:43 07/18/18 21:00 08/28/17 23:46 Temperature 98.7 F 97.9 F Pulse Rate 70 101 H Respiratory Rate 18 18 Blood Pressure 105/57 L 93/54 L Pulse Oximetry 95 94 L 94 L 08/29/17 01:00 08/29/17 04:06 08/29/17 05:00 Temperature 98 F Pulse Rate 108 H 90 98 H Respiratory Rate 20 Blood Pressure 127/62 Pulse Oximetry 96 08/29/17 07:00 08/29/17 07:50 08/29/17 08:00 Temperature 98.0 F Pulse Rate 80 87 Respiratory Rate 18 Blood Pressure 104/56 L Pulse Oximetry 94 L 92 L 08/29/17 09:00 08/29/17 10:00 Temperature Pulse Rate 78 84 Respiratory Rate Blood Pressure Pulse Oximetry Intake & Output 08/28/17 08/29/17 08/29/17 18:59 06:59 18:59 Intake Total 1150 / 1150 240 / 240 500 / 500 Output Total 800 / 800 650 / 650 Balance 350 / 350 -410 / -410 500 / 500 Weight 102.5 kg Intake: IV 250 / 250 500 / 500 Heparin/D5W 25,000 U/250 mL 25, 250 / 250 500 / 500 000 unit In 250 ml @ 1,000 UNIT /HR 10 mls/hr IV.CONT TITRATE PRN Rx#:[id number] Oral 900 / 900 240 / 240 Output: Urine Amount (Catheter) 800 / 800 650 / 650 Indwelling Urethral Catheter 800 / 800 650 / 650 Other: Date of Last Bowel Movement 08/25/17 Narrative: GENERAL: Well-developed, well-nourished, in no acute distress. HEENT: Head is normocephalic without any lesions or masses noted. Facial features are symmetric. NECK: Supple without any masses. Trachea midline no deviation. No JVD, no bruits are appreciated. CARDIAC: Irregular rhythm, irregular rate. S1/S2 are heard. No murmurs gallops or rubs. LUNGS: Clear to auscultation bilaterally. No wheeze, rhonchi or rales. No use of accessory muscles on inspiration or expiration. ABDOMEN: Soft, nontender. Nondistended. Bowel sounds heard in all 4 quadrants. No organomegaly or masses. Negative rebound, negative guarding EXTREMITIES: TR edema noted in bilateral lower extremity. No cyanosis or clubbing NEUROLOGY: Cranial nerves II through XII grossly intact. Moving all extremities , speech clear Results Procedures completed during hospitalization: Awaiting echocardiogram Labs on day of discharge: Labs from last 24 hours 08/29/17 08/29/17 08/29/17 06:56 06:56 06:02 WBC 12.8 H RBC 3.92 L Hgb 13.3 Hct 39.0 MCV 99.7 MCH 33.9 MCHC 34.0 RDW 14.6 Plt Count 186 MPV 8.9 Neut % (Auto) 81.2 H Lymph % (Auto) 9.7 [place] % (Auto) 8.5 H Eos % (Auto) 0.3 Baso % (Auto) 0.3 Neut # (Auto) 10.3 H Lymph # (Auto) 1.2 [place] # (Auto) 1.1 H Eos # (Auto) 0.0 Baso # (Auto) 0.0 WBC Differential . Differential Comment Auto diff final APTT 36.2 H Sodium 130 L Potassium 3.4 L Chloride 91 L Carbon Dioxide 28.2 Anion Gap 11 BUN 26 H Creatinine 1.57 H Estimated GFR 45 L Random Glucose 101 Calcium 8.5 Urine Color Urine Clarity Urine pH Ur Specific [place] Urine Protein Urine Glucose (UA) Urine Ketones Urine Occult Blood Urine Nitrate Urine Bilirubin Urine Urobilinogen Ur Leukocyte Esterase Urine RBC Urine WBC Micro UA Comment Urine Culture Comments 08/29/17 08/28/17 08/28/17 00:36 18:20 17:00 WBC RBC Hgb Hct MCV MCH MCHC RDW Plt Count MPV Neut % (Auto) Lymph % (Auto) [place] % (Auto) Eos % (Auto) Baso % (Auto) Neut # (Auto) Lymph # (Auto) [place] # (Auto) Eos # (Auto) Baso # (Auto) WBC Differential Differential Comment APTT 41.2 H D 27.0 D Sodium Potassium Chloride Carbon Dioxide Anion Gap BUN Creatinine Estimated GFR Random Glucose Calcium Urine Color Yellow Urine Clarity Hazy H Urine pH 6.0 Ur Specific [place] 1.010 Urine Protein 100 H Urine Glucose (UA) Negative Urine Ketones Negative Urine Occult Blood Large H Urine Nitrate Negative Urine Bilirubin Negative Urine Urobilinogen Less than 2 Ur Leukocyte Esterase Trace H Urine RBC 10 H Urine WBC 4 Micro UA Comment Cath-culture not ind Urine Culture Comments Cath-cult not ind Preliminary micro results at discharge 08/26/17 05:05 Aerobic Blood Culture - Preliminary Blood - Peripheral No growth in 3 days Anaerobic Blood Culture - Preliminary No growth in 3 days 08/26/17 05:00 Aerobic Blood Culture - Preliminary Blood - Peripheral No growth in 3 days Anaerobic Blood Culture - Preliminary No growth in 3 days - Impressions ITS Impressions Chest X-Ray 08/27/17 06:00 CONCLUSION: Bilateral mostly basilar airspace disease with small effusions. Cardiomegaly. No pneumothorax. Abdomen/Bladder Ultrasound 08/28/17 00:00 CONCLUSION: 1. There is mild increased echogenicity of the renal parenchyma bilaterally. This can be seen with chronic medical renal disease. 2. No evidence of hydronephrosis. Discharge Plan - Discharge Disposition Patient Disposition: Left Against Medical Advice - Discharge Condition Condition: Stable - Discharge Order Discharge Orders: AMA Discharge (Routine); Ordered 08/29/17 Ordered By: Raymon Simms - Discharge Details Anticipated Discharge Date: 08/29/17 - Physicians Team Primary Care Provider: Primary Care Katja Mei Attending Provider: Raymon Simms Other Providers: Thien Booth MD ; Vito Claudio MD
--- NOTE | 2017-08-29 14:31 | P.PNCA ---
Subjective Interval history: alert in nad, leaving AMA, dressed, pulled out his IV Physical Exam Vital signs: Vital Signs 08/28/17 15:00 08/28/17 16:00 08/28/17 17:00 Temperature 98.6 F Pulse Rate 82 89 88 Respiratory Rate 20 Blood Pressure 99/59 L Pulse Oximetry 95 08/28/17 18:00 08/28/17 19:43 08/28/17 21:00 Temperature 98.7 F Pulse Rate 90 70 Respiratory Rate 18 Blood Pressure 105/57 L Pulse Oximetry 95 94 L 08/28/17 23:46 08/29/17 01:00 08/29/17 04:06 Temperature 97.9 F 98 F Pulse Rate 101 H 108 H 90 Respiratory Rate 18 20 Blood Pressure 93/54 L 127/62 Pulse Oximetry 94 L 96 08/29/17 05:00 08/29/17 07:00 08/29/17 07:50 Temperature 98.0 F Pulse Rate 98 H 80 Respiratory Rate 18 Blood Pressure 104/56 L Pulse Oximetry 94 L 92 L 08/29/17 08:00 08/29/17 09:00 08/29/17 10:00 Temperature Pulse Rate 87 78 84 Respiratory Rate Blood Pressure Pulse Oximetry 08/29/17 11:00 Temperature 98.2 F Pulse Rate 74 Respiratory Rate 18 Blood Pressure 105/65 Pulse Oximetry 96 Intake & Output 08/28/17 08/29/17 08/29/17 18:59 06:59 18:59 Intake Total 1150 / 1150 240 / 240 500 / 500 Output Total 800 / 800 650 / 650 Balance 350 / 350 -410 / -410 500 / 500 Weight 102.5 kg Intake: IV 250 / 250 500 / 500 Heparin/D5W 25,000 U/250 mL 25, 250 / 250 500 / 500 000 unit In 250 ml @ 1,000 UNIT /HR 10 mls/hr IV.CONT TITRATE PRN Rx#:[id number] Oral 900 / 900 240 / 240 Output: Urine Amount (Catheter) 800 / 800 650 / 650 Indwelling Urethral Catheter 800 / 800 650 / 650 Other: Date of Last Bowel Movement 08/25/17 - Urinary Catheter Management Indwelling Urethral Catheter Cath placed during this visit: yes Reason for continuing: Hourly intake/output Insertion date: 08/26/17 Insertion time: 03:58 Assessment and Plan - Assessment (1) CHF (congestive heart failure) Code(s): I50.9 - Heart failure, unspecified Status: Acute (2) NSTEMI (non-ST elevated myocardial infarction) Code(s): I21.4 - Non-ST elevation (NSTEMI) myocardial infarction Status: Acute (3) ARF (acute renal failure) Code(s): N17.9 - Acute kidney failure, unspecified Status: Acute (4) Afib Code(s): I48.91 - Unspecified atrial fibrillation Status: Acute - Plan patient advised to have heart cath but he refuses and is leaving AMA, i advised him to f/u with local costumer in [facility]
== END 2017-08-29 13:20 | disposition left against medical advice (07) ==
LOC: NEPC 01:19 → NEDA 03:24 → HCPC 13:42
PROVIDERS: ADMIT Hospitalist; ATTEND Hospitalist